=== PATIENT | female | born 1955 | race Caucasian/White ===

== ENCOUNTER 2019-01-09 14:12 | Outpatient (REF) | payer BC, SELFPAY ==
[2019-01-09 19:32] LABS: Cholesterol 232 mg/dL (50-200); HDL Cholesterol 53 mg/dL (40-60); LDL CHOLESTEROL 139 mg/dL (<100); Triglyceride 279 mg/dL (30-150)
[2019-01-09 19:37] LABS: HCT 39.7 % (36.0-46.0); HGB 12.5 g/dL (12.0-15.5)
== END 2019-01-09 14:32 ==
LOC: NCHCN 14:12
PROVIDERS: PCP Family Medicine; Visit Provider Family Medicine
DX: Z00.00 Encounter for general adult medical examination without abnormal findings (principal); Z13.220 Encounter for screening for lipoid disorders; Z13.0 Encounter for screening for diseases of the blood and blood-forming organs and certain disorders involving the immune mechanism
CPT/HCPCS: 80061; 83721; 85014; 85018

== ENCOUNTER 2019-01-27 00:43 | Outpatient (CLI) | payer BC, SELFPAY ==
--- NOTE | 2019-01-27 15:45 | DI.RAD_ITS ---
SYMPTOMS/DIAGNOSIS: PREVENTATIVE HEALTH CARE, Z00.00, SCREENING FOR OSTEOPOROSIS IN A POSTMENOPAUSAL WOMAN, Z78.0 DEXA SCAN: Routine examination. Comparison is 2013. The lateral spine film shows no compression deformities. Evaluation of the left hip shows a total T score of -1.3 and a Z score of 0; this is consistent with osteopenia and an increased fracture risk. This compares with a total T score of -1.4 from 2013. Evaluation of the lumbar spine shows a total T score of 0.7 and a Z score of 2.4, which is within normal limits. This compares with a total T score of 0.8 from 2013. No evidence of osteoporosis is seen. IMPRESSION: Osteopenia in the left hip.
--- NOTE | 2019-01-27 16:14 | DI.MAMMO_ITS ---
SYMPTOM/DIAGNOSIS: SCREENING, PREVENTATIVE CARE, Z00.00 MAMMOGRAMS: Mammograms were interpreted according to the usual protocol including computer analysis with CAD system, tomosynthesis and C view imaging. Comparison is made with prior examinations. Breast density, Category B. No suspicious masses or microcalcifications are seen. There is no definite evidence of malignancy. IMPRESSION: Negative mammogram. Routine screening is recommended. Category 1. MQSA ASSESSMENT OF FINDINGS: Negative. Category 1. Patient will receive a letter notifying them of these results. BI-RADS category B. There are scattered areas of fibroglandular density.
== END 2019-01-27 01:03 ==
PROVIDERS: PCP Family Medicine; Visit Provider Family Medicine
DX: Z00.00 Encounter for general adult medical examination without abnormal findings (principal); Z12.31 Encounter for screening mammogram for malignant neoplasm of breast; M85.88 Other specified disorders of bone density and structure, other site
CPT/HCPCS: 77063; 77067; 77080

== ENCOUNTER 2019-03-31 01:14 | Outpatient (CLI) | payer BC, SELFPAY ==
--- NOTE | 2019-03-31 10:00 | DI.US_ITS ---
SYMPTOM/DIAGNOSIS; CAD i 77.9 CAROTID ULTRASOUND: No significant plaque is visualized. The velocity measurements obtained are within the normal range. The vertebral arteries show antegrade flow. IMPRESSION: negative carotid ultrasound. No significant visible plaque or evidence of internal carotid artery stenosis.
== END 2019-03-31 01:34 ==
PROVIDERS: PCP Family Medicine; Visit Provider Family Medicine
DX: I77.9 Disorder of arteries and arterioles, unspecified (principal)
CPT/HCPCS: 93880

== ENCOUNTER 2019-06-18 13:22 | Outpatient (REF) | payer MEDICARE, BC, SELFPAY ==
[2019-06-18 21:22] LABS: Anion Gap 11.1 mmol/L (3-11); BUN 18 mg/dL (7-18); CO2 25.9 mmol/L (21.0-32.0); Calcium 8.7 mg/dL (8.5-10.1); Chloride 105 mmol/L (98-107); Ferritin 50 ng/mL (8-388); Glucose 97 mg/dL (70-100); Magnesium 1.8 mg/dL (1.8-2.4); Potassium 4.5 mmol/L (3.5-5.1); Sodium 142 mmol/L (136-145); TSH (W/Ref FT4) 0.83 uIU/mL (0.36-3.74)
== END 2019-06-18 13:42 ==
LOC: NCHCN 13:22
PROVIDERS: PCP Family Medicine; Visit Provider Family Medicine
DX: R25.2 Cramp and spasm (principal)
CPT/HCPCS: 80048; 82728; 83735; 84443

== ENCOUNTER 2019-10-01 10:42 | Outpatient (REF) | payer MEDICARE, BC, SELFPAY ==
--- NOTE | 2019-10-01 10:20 | PAPFT_PTH ---
PATIENT: Molly Cronin LOC: [facility] U#:[id number] AGE/SX: 64/F ROOM: RE10/01/[address]: Ford Bray MD : [id number] BED: DIS: 10/01/2019 SPEC #: [id number] RECD: 10/01/19 13:04 STATUS: RUDY RECasi #: [id number] DARRION: 10/01/19 10:[address]: Ford Bray DEPT: [facility] Cytology RECD BY: Mendy Wilson ENTERED: 10/01/19 13:04 SP TYPE: PAPFT OTHR DR: Georgia Correa V Tissues: 1 - CX/ENDOCX FOR PAP SMEARS Procedures: PAP THIN PREP/UVM Screening HPV DNA PROBE Comments: [id number]
== END 2019-10-01 11:02 ==
LOC: LBN 10:42
PROVIDERS: PCP Family Medicine; Visit Provider Obstetrics & Gynecology
DX: Z12.4 Encounter for screening for malignant neoplasm of cervix (principal); Z11.51 Encounter for screening for human papillomavirus (HPV)
CPT/HCPCS: 88142; 87624

== ENCOUNTER 2020-04-28 01:46 | Outpatient (CLI) | payer MEDICARE, BC, SELFPAY ==
--- NOTE | 2020-04-28 | DI.MRI_ITS ---
EXAM: MR LUMBAR SPINE WO/W CLINICAL HISTORY: PREOP PLANNING,PREVIOUS L3-5 DECOMPRESSION. TECHNIQUE: Multiplanar multisequence MRI was performed. Additional pre and post gadolinium fat-supp ressed T1 axial and sagittal sequences were performed. 15 milliliters of Dotarem were administered I V. COMPARISON: CR RT HIP COMPLETE AP PELVIS from 12/27/2017 CT ABD PELVIS WO CONTRAST from 02/11/2018 FINDINGS: The conus medullaris appears normal and terminates at the T12-L1 level. At T12-L1, there are posterior disc osteophytes which mildly efface the CSF space. There is no signi ficant neural foraminal narrowing or central canal stenosis. The L1-2 level is unremarkable. At L2-3, there is marked loss of disc height and broad-based disc osteophytes. There are facet degen erative changes and ligamentous hypertrophy which combine to produce a moderate degree of central can al stenosis as well as left neural foraminal narrowing. L3-4, there is mild loss of height and small disc osteophytes. There are facet degenerative changes and ligamentous hypertrophy mildly narrowing the transverse dimension of the canal. There is moderat e bilateral neural foraminal narrowing. There has been a laminectomy at L4. There is L4-5 spondylolisthesis which appears unchanged from the previous CT. There is loss of disc height and disc bulging. There is a degenerative cyst in the in ferior endplate of L4. There are prominent facet degenerative changes causing severe bilateral neura l foraminal narrowing. There is also moderate to severe central canal stenosis, mainly of the transv erse dimension. The L5-S1 disc shows mild bulging. There mild facet degenerative changes and no significant neural f oraminal narrowing. A nerve root sheath cyst is seen at the S2 level. The aorta is normal in diameter. The kidneys are normal as visualized. There is no abnormal enhance ment within the central canal. IMPRESSION: Severe degenerative disc changes and severe facet degenerative changes as well as postsurgical garcia es at L4-5 cause severe bilateral neural foraminal narrowing as well as moderate to severe central ca nal stenosis. Less severe degenerative changes are seen at other levels as mentioned above. DATA REPOSITORY:
[2020-04-28 11:01] LABS: CREATININE 0.71 mg/dL (0.55-1.02)
[2020-04-28] MEDS: Normal Saline Flush 10 ML SYR IVP (11:08)
[2020-04-28] MEDS: Gadoterate meglumine 20 ML VIAL 15 ML IVP (11:09)
== END 2020-04-28 02:06 ==
PROVIDERS: PCP Family Medicine; Visit Provider Orthopaedic Surgery
DX: M47.816 Spondylosis without myelopathy or radiculopathy, lumbar region (principal); M48.061 Spinal stenosis, lumbar region without neurogenic claudication; M25.78 Osteophyte, vertebrae
CPT/HCPCS: 72158; 82565

== ENCOUNTER 2020-05-23 00:45 | Outpatient (CLI) | payer MEDICARE, BC, SELFPAY ==
--- NOTE | 2020-05-23 11:50 | DI.MRI_ITS ---
EXAM: MR LOWER JOINT RT WO CLINICAL HISTORY: EVALUATE INTEGRITY OF ACHILLES TENDON RT HEEL,ARTHRALGIA,PAIN,M76.62. TECHNIQUE: Multiplanar multisequence MRI was performed. COMPARISON: No exams were available for comparison FINDINGS: MR examination of the ankle was performed according to the usual protocol. Patient reportedly has sy mptoms referable to the heel and Achilles tendon. There is minimally abnormal bony signal at the Achilles attachment on the calcaneus. There is a smal l Achilles attachment spur of the calcaneus. The distal Achilles tendon is thickened at about 15 mil limeters. There appears to be linear tearing at the Achilles insertion particularly the anterior por tion of the Annamaria insertional tendon with tearing extending over approximately 10 by 4 millimeter vert ically oriented region in tendon. Mildly abnormal fat signal seen adjacent to the distal Achilles. Small ankle joint effusion noted. Remainder of the tendons of the ankle including the medial, latera l, and anterior tendon groups, appear intact. Plantar fascia shows essentially normal signal and tiffanie ronaldo. There is mild marginal osteophyte formation at the tibiotalar, talofibular, and tibiofibular joints a s well as at the subtalar articulations. Cartilage of these articulations appear fairly well maintai pasquale. No significant ligamentous abnormality of the aforementioned joints. Alignment appears within normal limits. Visualized midfoot structures appear intact including the sinus tarsi and tarsal tunn el regions. Mildly increased fluid associated with the flexor hallucis longus tendon without intra t endinous signal abnormality. IMPRESSION: Marked Achilles thickening an intra tendinous signal abnormality consistent with tendinosis in the Pe ri insertional tendon with associated focal linear vertically oriented tear of the Annamaria insertional t endon. No other significant findings in the ankle region. DATA REPOSITORY:
== END 2020-05-23 01:05 ==
PROVIDERS: PCP Family Medicine; Visit Provider Podiatrist
DX: M76.61 Achilles tendinitis, right leg (principal); S86.011A Strain of right Achilles tendon, initial encounter
CPT/HCPCS: 73721

== ENCOUNTER 2020-05-26 21:46 | Outpatient (REF) | payer MEDICARE, BC, SELFPAY ==
[2020-05-26 19:43] LABS: BUN 22 mg/dL (7-18); CREATININE 0.79 mg/dL (0.55-1.02)
[2020-05-27 17:57] LABS: HCT 40.9 % (36.0-46.0); HGB 12.6 g/dL (11.2-15.7); MCH 28.6 pg (27.0-33.0); MCHC 30.8 % (32.0-36.0); MPV 10.1 fL (8.0-11.0); Platelet Count 257 10^3/uL (130-400); RDW 13.8 % (11.7-14.6); RDW-SD 47.4 fL; WBC 6.35 10^3/uL (4.4-10.8)
== END 2020-05-26 22:06 ==
LOC: NCHCN 21:46
PROVIDERS: PCP Family Medicine; Visit Provider Nurse Practitioner Family
DX: M54.5 Low back pain (principal); Z01.818 Encounter for other preprocedural examination; Z11.8 Encounter for screening for other infectious and parasitic diseases
CPT/HCPCS: 84520; 85027; 87081; 82565

== ENCOUNTER 2020-06-10 03:50 | Outpatient (CLI) | payer MEDICARE, BC, SELFPAY ==
[2020-06-11 20:28] LABS: COVID-19 RT-PCR Result NEGATIVE (Negative)
== END 2020-06-10 04:10 ==
PROVIDERS: PCP Family Medicine; Visit Provider Orthopaedic Surgery
DX: Z11.59 Encounter for screening for other viral diseases (principal); Z01.818 Encounter for other preprocedural examination
CPT/HCPCS: U0003

== ENCOUNTER 2020-07-12 12:53 | Outpatient (REF) | payer MEDICARE, BC, SELFPAY | END 2020-07-12 13:13 | LOC: NCHCN 12:53 | PROVIDERS: PCP Family Medicine; Visit Provider Family Medicine | DX: Z48.89 Encounter for other specified surgical aftercare (principal); T81.49XA Infection following a procedure, other surgical site, initial encounter | CPT/HCPCS: 87077; 87070; 87186; 87205 ==

== ENCOUNTER 2020-08-09 14:59 | Outpatient (REF) | payer MEDICARE, BC, SELFPAY ==
[2020-08-14 11:22] LABS: Codeine Negative ng/mL (Cutoff: 25); Dihydrocodeine Negative ng/mL (Cutoff: 25); Hydrocodone Negative ng/mL (Cutoff: 25); Hydromorphone 33 ng/mL (Cutoff: 25); Morphine Negative ng/mL (Cutoff: 25); Naloxone Negative ng/mL (Cutoff: 25); Norhydrocodone Negative ng/mL (Cutoff: 25); Noroxycodone 13287 ng/mL (Cutoff: 25); Noroxymorphone 680 ng/mL (Cutoff: 25); Opiates Interpretation Positive.
== END 2020-08-09 15:19 ==
LOC: NCHCN 14:59
PROVIDERS: PCP Family Medicine; Visit Provider Family Medicine
DX: R82.5 Elevated urine levels of drugs, medicaments and biological substances (principal)
CPT/HCPCS: 80361

== ENCOUNTER 2021-01-24 11:12 | Outpatient (REF) | payer MEDICARE, BC, SELFPAY ==
[2021-01-24 16:16] LABS: HCT 39.3 % (36.0-46.0); HGB 12.1 g/dL (11.2-15.7); MCHC 30.8 % (32.0-36.0); MCV 84.3 fL (80-95); MPV 9.7 fL (8.0-11.0); Platelet Count 276 10^3/uL (130-400); RBC 4.66 10^6/uL (3.93-5.22); RDW 16.9 % (11.7-14.6); RDW-SD 52.1 fL; WBC 5.35 10^3/uL (4.4-10.8)
[2021-01-24 16:19] LABS: ESR 19 mm//hr (0-30)
[2021-01-24 17:18] LABS: ALT 34 U/L (14-59); AST 18 U/L (15-37); Albumin 3.6 g/dL (3.4-5.0); Alkaline Phosphatase 116 U/L (46-116); Anion Gap 7.2 mmol/L (3-11); BUN 22 mg/dL (7-18); Bilirubin, Total 0.3 mg/dL (0.2-1.0); CO2 28.8 mmol/L (21.0-32.0); CREATININE 0.8 mg/dL (0.55-1.02); Calcium 8.4 mg/dL (8.5-10.1); Calculated LDL 99 mg/dL (<100); Chloride 105 mmol/L (98-107); Cholesterol 216 mg/dL (<200); Glucose 114 mg/dL (74-106); HDL Cholesterol 41 mg/dL (40-60); Magnesium 1.8 mg/dL (1.8-2.4); Potassium 4.8 mmol/L (3.5-5.1); Sodium 141 mmol/L (136-145); Total Protein 6.9 g/dL (6.4-8.2); Triglyceride 380 mg/dL (<150)
[2021-01-24 17:29] LABS: C-Reactive Protein 0.27 mg/dL (0.0-0.3)
[2021-01-30 15:41] LABS: IgA 233 mg/dL (85-499); Interpretation (See Note); Tissue Transglutaminase IgA <1.2 U/mL (<4.0)
== END 2021-01-24 11:13 | disposition home or self-care (01) ==
LOC: NCHCN 11:12
PROVIDERS: PCP Family Medicine; Visit Provider Family Medicine
DX: R19.7 Diarrhea, unspecified (principal); R10.9 Unspecified abdominal pain; F41.9 Anxiety disorder, unspecified; R79.89 Other specified abnormal findings of blood chemistry
CPT/HCPCS: 80053; 80061; 82784; 83516; 85027; 85652; 83735; 84443; 86140

== ENCOUNTER 2021-03-01 15:44 | Outpatient (REF) | payer MEDICARE, BC, SELFPAY | END 2021-03-01 15:45 | disposition home or self-care (01) | LOC: NCHCN 15:44 | PROVIDERS: PCP Family Medicine; Visit Provider Physician Assistant Medical | DX: R35.0 Frequency of micturition (principal) | CPT/HCPCS: 87077; 87086; 87186 ==

== ENCOUNTER 2021-04-26 13:41 | Outpatient (REF) | payer MEDICARE, BC, SELFPAY | END 2021-04-26 13:42 | disposition home or self-care (01) | LOC: NCHCN 13:41 | PROVIDERS: PCP Family Medicine; Visit Provider Nurse Practitioner Family | DX: N39.0 Urinary tract infection, site not specified (principal) | CPT/HCPCS: 87077; 87086; 87186 ==

== ENCOUNTER 2021-07-11 12:26 | Outpatient (REF) | payer MEDICARE, BC, SELFPAY ==
[2021-07-11 19:24] LABS: HCT 38.9 % (36.0-46.0); MCH 27.5 pg (27.0-33.0); MCHC 30.8 % (32.0-36.0); MPV 9.8 fL (8.0-11.0); Platelet Count 250 10^3/uL (130-400); RBC 4.37 10^6/uL (3.93-5.22); RDW 14.8 % (11.7-14.6); RDW-SD 48.3 fL; WBC 5.83 10^3/uL (4.4-10.8)
[2021-07-11 19:25] LABS: ESR 17 mm/hr (0-30)
[2021-07-11 19:58] LABS: ALT 30 U/L (14-59); AST 14 U/L (15-37); Albumin 3.3 g/dL (3.4-5.0); Alkaline Phosphatase 113 U/L (46-116); Anion Gap 8.5 mmol/L (3-11); BUN 16 mg/dL (7-18); Bilirubin, Total 0.2 mg/dL (0.2-1.0); CO2 27.5 mmol/L (21.0-32.0); CREATININE 0.8 mg/dL (0.55-1.02); Calcium 8.6 mg/dL (8.5-10.1); Chloride 107 mmol/L (98-107); Glucose 126 mg/dL (74-106); Potassium 4.2 mmol/L (3.5-5.1); Sodium 143 mmol/L (136-145); Total Protein 6.4 g/dL (6.4-8.2)
[2021-07-14 22:43] LABS: Codeine Negative ng/mL (Cutoff: 25); Dihydrocodeine Negative ng/mL (Cutoff: 25); Hydrocodone Negative ng/mL (Cutoff: 25); Hydromorphone Negative ng/mL (Cutoff: 25); Morphine Negative ng/mL (Cutoff: 25); Naloxone Negative ng/mL (Cutoff: 25); Norhydrocodone Negative ng/mL (Cutoff: 25); Noroxycodone 5712 ng/mL (Cutoff: 25); Noroxymorphone 259 ng/mL (Cutoff: 25); Opiates Interpretation Positive.
[2021-07-18 10:18] LABS: IgA 206 mg/dL (85-499); Interpretation (See Note); Tissue Transglutaminase IgA <1.2 U/mL (<4.0)
[2021-07-19 19:45] LABS: 2-OH-Ethyl-Flurazepam Negative ng/mL (Cutoff: 10); 7-NH-Clonazepam Negative ng/mL (Cutoff: 10); 7-NH-Flunitrazepam Negative ng/mL (Cutoff: 10); Alpha OH-Alprazolam Negative ng/mL (Cutoff: 10); Alpha-OH Midazolam Negative ng/mL (Cutoff: 10); Alpha-OH-Triazolam Negative ng/mL (Cutoff: 10); Alprazolam Negative ng/mL (Cutoff: 10); Benzodiazepines Interpretation Positive.; Chlordiazepoxide Negative ng/mL (Cutoff: 10); Clobazam Negative ng/mL (Cutoff: 10); Clonazepam Negative ng/mL (Cutoff: 10); Diazepam Negative ng/mL (Cutoff: 10); Flurazepam Negative ng/mL (Cutoff: 10); Lorazepam Negative ng/mL (Cutoff: 10); Midazolam Negative ng/mL (Cutoff: 10); N-Desmethylclobazam Negative ng/mL (Cutoff: 10); Prazepam Negative ng/mL (Cutoff: 10); Temazepam 133 ng/mL (Cutoff: 10); Triazolam Negative ng/mL (Cutoff: 10); Zolpidem Carboxylic acid Negative ng/mL (Cutoff: 10)
== END 2021-07-11 12:27 | disposition home or self-care (01) ==
LOC: NCHCN 12:26
PROVIDERS: PCP Family Medicine; Visit Provider Family Medicine
DX: Z51.81 Encounter for therapeutic drug level monitoring (principal); R19.7 Diarrhea, unspecified; R10.84 Generalized abdominal pain
CPT/HCPCS: 80053; 80361; 80362; 80365; 82784; 83516; 85027; 85652; 80346; 86140

== ENCOUNTER 2021-07-18 15:08 | Outpatient (REF) | payer MEDICARE, BC, SELFPAY | END 2021-07-18 15:09 | disposition home or self-care (01) | LOC: LBN 15:08 | PROVIDERS: PCP Family Medicine; Visit Provider Nurse Practitioner Family | DX: R35.0 Frequency of micturition (principal) | CPT/HCPCS: 87077; 87086; 87186 ==

== ENCOUNTER 2021-08-07 20:19 | Outpatient (REF) | payer MEDICARE, BC, SELFPAY ==
[2021-08-14 13:04] LABS: Misc Referral (MAYO) See Comments
== END 2021-08-07 20:20 | disposition home or self-care (01) ==
LOC: NCHCN 20:19
PROVIDERS: PCP Family Medicine; Visit Provider Family Medicine
DX: R19.7 Diarrhea, unspecified (principal); R23.2 Flushing
CPT/HCPCS: 84260

== ENCOUNTER 2021-10-10 18:12 | Outpatient (REF) | payer MEDICARE, BC, SELFPAY ==
[2021-10-11 00:30] LABS: COVID-19 RT-PCR UVMMC Result Negative (Negative)
== END 2021-10-10 18:13 | disposition home or self-care (01) ==
LOC: NCHCN 18:12
PROVIDERS: PCP Family Medicine; Visit Provider Family Medicine
DX: Z20.822 Contact with and (suspected) exposure to COVID-19 (principal); J06.9 Acute upper respiratory infection, unspecified
CPT/HCPCS: U0003; U0005

== ENCOUNTER 2022-01-09 14:50 | Outpatient (REF) | payer MEDICARE, BC, SELFPAY ==
[2022-01-09 18:41] LABS: HCT 43.9 % (36.0-46.0); HGB 13.7 g/dL (11.2-15.7); MCHC 31.2 % (32.0-36.0); MCV 89.8 fL (80-95); MPV 9.1 fL (8.0-11.0); Platelet Count 316 10^3/uL (130-400); RBC 4.89 10^6/uL (3.93-5.22); RDW 14.3 % (11.7-14.6); RDW-SD 47.1 fL; WBC 6.83 10^3/uL (4.4-10.8)
[2022-01-09 19:05] LABS: ALT 51 U/L (14-59); AST 18 U/L (15-37); Albumin 3.8 g/dL (3.4-5.0); Alkaline Phosphatase 100 U/L (46-116); Anion Gap 8.7 mmol/L (3-11); BUN 23 mg/dL (7-18); Bilirubin, Total 0.3 mg/dL (0.2-1.0); C-Reactive Protein 0.29 mg/dL (0.0-0.3); CO2 27.3 mmol/L (21.0-32.0); CREATININE 0.8 mg/dL (0.55-1.02); Calcium 9.1 mg/dL (8.5-10.1); Chloride 104 mmol/L (98-107); Glucose 91 mg/dL (74-106); Potassium 5.2 mmol/L (3.5-5.1); Sodium 140 mmol/L (136-145); TSH (W/Ref FT4) 1.31 uIU/mL (0.36-3.74); Total Protein 7.1 g/dL (6.4-8.2)
[2022-01-09 19:15] LABS: ESR 12 mm/hr (0-30)
== END 2022-01-09 14:51 | disposition home or self-care (01) ==
LOC: NCHCN 14:50
PROVIDERS: PCP Family Medicine; Visit Provider Family Medicine
DX: R19.7 Diarrhea, unspecified (principal); R10.9 Unspecified abdominal pain; M54.59 Other low back pain
CPT/HCPCS: 80053; 85027; 85652; 84443; 86140

== ENCOUNTER 2022-01-25 01:38 | Outpatient (CLI) | payer MEDICARE, BC, SELFPAY ==
--- NOTE | 2022-01-25 08:45 | DI.CT_ITS ---
Exam(s) CT ABDOMEN PELVIS W EXAM: CT ABDOMEN PELVIS W INDICATION: ABD PAIN,R10.9,FREQUENT LOOSE, STOLS,R19.7. COMPARISON: CT ABD PELVIS WO CONTRAST from 02/11/2018 TECHNIQUE: FINDINGS: CT examination of the abdomen and pelvis was performed with a bolus infusion of 100 cc of Omnipaque 3 50. Images obtained through the lung bases are unremarkable. There is dilatation and wall thickening duodenum and proximal jejunum, findings are nonspecific but t he possibility of enteritis is raised, giardiasis not excluded, please correlate clinically. Note is also made of apparent wall thickening of the distal descending and sigmoid colon, nonspecific but the findings may represent colitis. The liver is unremarkable in appearance except for tiny low-attenuation lesion of the right hepatic l obe consistent with cyst.. Gallbladder and bile ducts are CT normal. Pancreas appears normal. Spleen is unremarkable in appearance. Adrenals appear normal. The kidneys are unremarkable with no evidence of hydronephrosis, nephrolithiasis, or renal mass.. Ur inary bladder unremarkable. Abdominal aorta is of normal diameter and no major vascular abnormality is seen. No abdominal wall hernia. No abdominal or pelvic adenopathy. TREATMENT COUNSELOR structures appear intact. Appendix has been surgically removed with suture line noted at the base of the cecum. IMPRESSION: Findings raising the possibility of enteritis and colitis, please see above discussion. Additional e valuation with colonoscopy and upper endoscopy may be considered if clinically appropriate.. RADIATION DOSE DELIVERED: 878.92mGy.cm Total DLP 878.92mGy.cm Total DLP !Error CTDIvol RADIATION OPTIMIZATION: All CT scans at this facility use at least one of these dose optimization te chniques: automated exposure control; mA and/or kV adjustment per patient size (includes targeted exa ms where dose is matched to clinical indication); or iterative reconstruction.
[2022-01-25] MEDS: Omnipaque 350 MG/ML 100 ML BTL IJ (10:24)
[2022-01-25] MEDS: Omnipaque 350 MG/ML 50 ML BTL IJ (10:27)
[2022-01-25] MEDS: Breeza Beverage 473 ML BTL PO (10:27)
== END 2022-01-25 01:58 ==
PROVIDERS: PCP Family Medicine; Visit Provider Family Medicine
DX: R10.9 Unspecified abdominal pain (principal); R19.7 Diarrhea, unspecified; K31.89 Other diseases of stomach and duodenum; K63.89 Other specified diseases of intestine; K76.89 Other specified diseases of liver
CPT/HCPCS: 74177; J3490; Q9967

== ENCOUNTER 2022-01-25 16:37 | Outpatient (REF) | payer MEDICARE, BC, SELFPAY ==
[2022-01-29 13:51] LABS: Helicobacter pylori Ag, Feces Negative (Negative)
== END 2022-01-25 16:38 | disposition home or self-care (01) ==
LOC: NCHCN 16:37
PROVIDERS: PCP Family Medicine; Visit Provider Family Medicine
DX: R19.7 Diarrhea, unspecified (principal); R10.9 Unspecified abdominal pain
CPT/HCPCS: 87338

== ENCOUNTER → 2022-08-28 01:56 | Outpatient (CLI) | payer MEDICARE, BC, SELFPAY ==
--- NOTE | 2022-08-28 | DI.DEXA_ITS ---
Exam(s) XR DEXA BONE DENSITY W/WO TAMI EXAM: XR DEXA BONE DENSITY W/WO TAMI CLINICAL HISTORY: OSTEOPENIA M85.80 POSTMENOPAUSAL Z78.0 TECHNIQUE: COMPARISON: Comparison examination is 01/27/2019. FINDINGS: Lateral Spine Image: Unremarkable. No compression deformities identified. Postsurgical changes are s een from L3 through L5. Left hip: Total T-Score: -1.3. This is unchanged compared to the prior examination. Total Z-Score: 0.2 T- and Z-scores: Findings are consistent with osteopenia. Left forearm: Total T-Score: -0.3. Osteopenia is noted in the left forearm with a T-score of -1.1. Total Z-Score: 1.6 T- and Z-scores: Within normal limits. IMPRESSION: No evidence of osteoporosis.
== END ==
PROVIDERS: PCP Family Medicine; Visit Provider Family Medicine
DX: Z78.0 Asymptomatic menopausal state (principal); Z13.820 Encounter for screening for osteoporosis; M85.88 Other specified disorders of bone density and structure, other site
CPT/HCPCS: 77080

== ENCOUNTER 2022-10-10 01:35 | Outpatient (CLI) | payer MEDICARE, SELFPAY ==
--- NOTE | 2022-10-10 | DI.MAMMO_ITS ---
Exam(s) MAMMO SCREENING EXAM: MAMMO SCREENING CLINICAL HISTORY: SCREENING FOR BREAST CANCER Z12.31 [facility] Z00.00 TECHNIQUE: Mammograms were interpreted according to the usual protocol including computer analysis w ith CAD system, tomosynthesis and C-view imaging. COMPARISON: 2012 through 2018 FINDINGS: The breasts are composed of scattered fibroglandular densities, Breast Density category B. No suspicious masses or suspicious microcalcifications are seen. No skin thickening or abnormal axillary lymph nodes are seen. There has been no significant change from prior exams. IMPRESSION: BI-RADS Category 1, Negative mammogram Yearly screening mammography is recommended. Breast Density - Category B, scattered fibroglandular densities. A negative radiographic report should not delay biopsy if a dominant or clinically suspicious mass is present. Up to ten percent of cancers are not identified on mammography. A negative report may reinforce clinical impression. Adenosis and dense breasts may obscure an underlying neoplasm. False positive reports average 6 to 10%. Patient will receive a letter notifying them of these results.
== END 2022-10-10 01:55 ==
PROVIDERS: PCP Family Medicine; Visit Provider Family Medicine
DX: Z12.31 Encounter for screening mammogram for malignant neoplasm of breast (principal)
CPT/HCPCS: 77063; 77067

== ENCOUNTER 2023-02-05 17:48 | Outpatient (REF) | payer MEDICARE, BC, SELFPAY ==
[2023-02-05 16:06] LABS: ALT 36 U/L (14-59); AST 23 U/L (15-37); Albumin 3.5 g/dL (3.4-5.0); Alkaline Phosphatase 112 U/L (46-116); Anion Gap 7.4 mmol/L (3-11); BUN 19 mg/dL (7-18); Bilirubin, Total 0.2 mg/dL (0.2-1.0); CO2 26.6 mmol/L (21.0-32.0); CREATININE 0.8 mg/dL (0.55-1.02); Calcium 8.3 mg/dL (8.5-10.1); Calculated LDL 105 mg/dL (<100); Chloride 108 mmol/L (98-107); Cholesterol 203 mg/dL (<200); Estimated GFR 79.71 (mL/min/1.73m2); Glucose 101 mg/dL (74-106); HDL Cholesterol 56 mg/dL (40-60); Potassium 4.2 mmol/L (3.5-5.1); Sodium 142 mmol/L (136-145); Triglyceride 213 mg/dL (<150)
== END 2023-02-05 17:49 | disposition home or self-care (01) ==
LOC: NCHCN 17:48
PROVIDERS: PCP Family Medicine; Visit Provider Family Medicine
DX: Z00.00 Encounter for general adult medical examination without abnormal findings (principal); M19.90 Unspecified osteoarthritis, unspecified site
CPT/HCPCS: 80053; 80061; 82306

== ENCOUNTER 2023-07-24 21:07 | Emergency (ER) | payer MEDICARE, BC, SELFPAY ==
--- NOTE | 2023-07-24 20:45 | RT.EKG_ITS ---
APPROVED REPORT Exam: Resting ECG Reason for Exam: chest pain Patient Location: E HR:88 bpm ECG Measurements Heart Rate 88 AXIS FL 162 P 28 QRSd 96 QRS 2 QT 345 T 45 QTc 418 Conclusion Sinus rhythm...V-rate 60- [address] segment or T wave abnormalities to suggest occlusive RI
[2023-07-24 20:53] VITALS: BP 140/70; PULSE 90; RESP 16; O2SAT 98
[2023-07-24 20:56] VITALS: RESP 16
[2023-07-24 21:17] LABS: Abs Immature Grans 0.02 10^3/uL (0.0-0.06); Absolute Basophil Count 0.05 10^3/uL (0.0-0.2); Absolute Eosinophil Count 0.14 10^3/uL (0.0-0.7); Absolute Lymphocyte Count 2.04 10^3/uL (1.2-3.4); Absolute Monocyte Count 0.58 10^3/uL (0.1-0.8); Absolute Neutrophil Count 4.58 10^3/uL (1.2-6.7); Basophils % 0.7; Eosinophils % 1.9; HGB 13.3 g/dL (11.2-15.7); Immature Grans % 0.3; Lymphocytes % 27.5; MCH 28.7 pg (27.0-33.0); MCHC 32.4 % (32.0-36.0); MCV 89 fL (80-95); MPV 8.6 fL (8.0-11.0); Monocytes % 7.8; Neutrophils % 61.8; Platelet Count 240 10^3/uL (130-400); RBC 4.63 10^6/uL (3.93-5.22); RDW 13.4 % (11.7-14.6); RDW-SD 43.8 fL; WBC 7.41 10^3/uL (4.4-10.8)
[2023-07-24 21:24] LABS: Prothrombin Time 10.2 sec (9.1-11.1)
[2023-07-24 21:31] LABS: ALT 33 U/L (14-59); AST 20 U/L (15-37); Albumin 3.6 g/dL (3.4-5.0); Alkaline Phosphatase 98 U/L (46-116); Anion Gap 6.4 mmol/L (3-11); BUN 22 mg/dL (7-18); Bilirubin, Total 0.4 mg/dL (0.2-1.0); CO2 27.6 mmol/L (21.0-32.0); CREATININE 0.8 mg/dL (0.55-1.02); Calcium 8.8 mg/dL (8.5-10.1); Chloride 106 mmol/L (98-107); Estimated GFR 79.71 (mL/min/1.73m2); Glucose 112 mg/dL (74-106); Potassium 4.5 mmol/L (3.5-5.1); Sodium 140 mmol/L (136-145); Troponin I < 50 ng/L (<or=60)
--- NOTE | 2023-07-24 21:57 | DI.CT_ITS ---
Exam(s) CT CHEST/ABD/PEL WO EXAM: CT CHEST/ABD/PEL WO CLINICAL HISTORY: Mid epigastric abdominal pain, Nausea. TECHNIQUE: Imaging Protocol: Axial computed tomography images with coronal and sagittal reformatted images were created and reviewed CONTRAST MATERIAL: Intravenous: Omnipaque 350 Contrast volume:100 ml Oral: no COMPARISON: CT CT ABDOMEN PELVIS W from 01/25/2022 FINDINGS: CHEST: Tracheobronchial tree: Patent where visualized. Pulmonary parenchyma: No consolidation or dominant measurable mass. Minimal posterior basilar atelec tasis. Pleura: No effusion or pneumothorax. Lymph nodes: Within normal limits. Aorta: Thoracic portion non-dilated. Heart: Normal size. Mild coronary artery calcifications. No pericardial effusion. Bones: Unremarkable for age. No lytic or blastic lesions.No compression fractures. ABDOMEN and PELVIS: Liver: Normal density. No measurable mass. Gallbladder and biliary tract: No evidence of stones or wall thickening. No biliary dilatation. Pancreas: Normal density, no abnormal calcifications or inflammatory process. Spleen: Normal. Kidneys: Normal size, contour and axis. No radiodense stones or obstructive uropathy. No suspicious m asses seen. Adrenal glands: No masses seen. Aorta: Abdominal portion non-dilated. Mild atherosclerotic changes. Lymph nodes: Within normal limits. Soft tissues: Unremarkable. Bladder: Unremarkable. Bowel: Stomach nearly empty. Sigmoid diverticulosis. No evidence of diverticulitis. Moderate quant ity of stool. No obstruction or bowel wall thickening. Appendix not definitely visualized. Peritoneal cavity: No ascites. No focal collection or mesenteric inflammatory response. Bones: postsurgical changes lower lumbar spine with hardware. Degenerative changes. Reproductive organs: Unremarkable. IMPRESSION: No acute abnormality in the chest, abdomen or pelvis.. RADIATION DOSE DELIVERED: Total DLP DATA REPOSITORY: All CT scans at this facility are submitted to the National Radiology Data Registry (NRDR) Dose Index Registry (DIR) with the [employer] (ACR). RADIATION OPTIMIZATION: All CT scans at this facility use at least one of these dose optimization te chniques: automated exposure control; mA and/or kV adjustment per patient size (includes targeted exa ms where dose is matched to clinical indication); or iterative reconstruction.
--- NOTE | 2023-07-24 22:00 | ED.GENADUL_ITS ---
Discharge Plan Discharge Details Chief Complaint: Chest Pain Clinical Impression: Abdominal pain Primary Care Provider: Georgia Correa V ED Provider: Graciela Nice Home Meds and New Rx's Prescriptions: No Action duloxetine [Cymbalta] 20 mg capsule,delayed release(DR/EC) 20 mg PO BID Hold Instructions: Prescription Finished escitalopram oxalate [Lexapro] 10 MG tablet 10 mg PO DAILY famotidine 20 mg tablet 20 mg PO DAILY celecoxib [Celebrex] 200 mg capsule 200 mg PO BID Rx Instructions: with a meal trazodone 150 MG tablet 150 mg PO DAILY omeprazole 20 MG capsule,delayed release(DR/EC) 20 mg PO DAILY diclofenac sodium 75 MG tablet,delayed release (DR/EC) 75 mg PO BID Hold Instructions: Prescription Finished cyclobenzaprine 10 MG tablet 10 mg PO TID PRN PRN Patient Comments: Patient states she has not taken this in a few weeks. Patient states she takes this as needed. rizatriptan [Maxalt] 10 MG tablet 10 mg PO DIRECTED Patient Comments: last week acetaminophen [Tylenol Arthritis Pain] 650 MG tablet extended release 650 mg PO DAILY Hold Instructions: Adverse Reaction oxycodone 10 MG tablet 10 mg PO BID PRN Hold Instructions: Prescription Finished Medical Decision Making 67-year-old female with a past medical history of diverticulosis, peptic ulcer disease, GERD, colitis, IBS and CAD presents with midepigastric abdominal pain which radiates down to her navel which began 2 days ago. Patient reports this is different than her previous abdominal pain. Associate with nausea no vomiting reports diarrhea which is chronic for her. She denies any hematic emesis or hematochezia. She does not take aspirin on a daily basis she reports that she cannot take aspirin or NSAIDs due to to her GI disease. Cardiac work-up ordered including serial troponins, CT chest abdomen pelvis with IV contrast ordered. Differential Dx includes but not limited to SOB, cholecystitis, AAA, GERD, diverticulitis 500 cc normal saline bolus ordered and Fentanyl IV Initial troponin within normal limits. No leukocytosis no left shift, PT/INR within normal limits CMP shows sodium 140 potassium 4.5 BUN 22 creatinine 0.8 glucose is 112 liver enzymes within normal limits initial troponin less than 50. 2306: CT changed to without contrast due to IV contrast dye. Care is to be handed off to oncoming provider Dr. Jose Panda pending repeat troponin at midnight and CT results. Medical Records Medical records reviewed: Yes I reviewed the patient's medical records. Lab Data Lab results reviewed: Yes I reviewed the patient's lab results. Labs: Laboratory Tests Range/Units 07/24/23 20:57 WBC (4.4-10.8) 10^3/uL 7.41 RBC (3.93-5.22) 10^6/uL 4.63 Hgb (11.2-15.7) g/dL 13.3 Hct (36.0-46.0) % 41.0 MCV (80-95) fL 89 MCH (27.0-33.0) pg 28.7 MCHC (32.0-36.0) % 32.4 RDW (11.7-14.6) % 13.4 Plt Count (130-400) 10^3/uL 240 MPV (8.0-11.0) fL 8.6 Immature Gran % 0.3 Neutrophils % 61.8 Lymphocytes % 27.5 Monocytes % 7.8 Eosinophils % 1.9 Basophils % 0.7 Nucleated RBC % (0.0-0.3) % 0.0 Absolute Neutrophils (1.2-6.7) 10^3/uL 4.58 Absolute Lymphocytes (1.2-3.4) 10^3/uL 2.04 Absolute Monocytes (0.1-0.8) 10^3/uL 0.58 Absolute Eosinophils (0.0-0.7) 10^3/uL 0.14 Absolute Basophils (0.0-0.2) 10^3/uL 0.05 PT (9.1-11.1) sec 10.2 INR (0.9-1.1) 1.0 Sodium (136-145) mmol/L 140 Potassium (3.5-5.1) mmol/L 4.5 Chloride (98-107) mmol/L 106 Carbon Dioxide (21.0-32.0) mmol/L 27.6 Anion Gap (3-11) mmol/L 6.4 BUN (7-18) mg/dL 22 H Creatinine (0.55-1.02) mg/dL 0.8 Est GFR (CKD-EPI 2020) (mL/min/1.73m2) 79.71 Glucose (74-106) mg/dL 112 H Calcium (8.5-10.1) mg/dL 8.8 Magnesium (1.8-2.4) mg/dL 2.0 Total Bilirubin (0.2-1.0) mg/dL 0.4 AST (15-37) U/L 20 ALT (14-59) U/L 33 Alkaline Phosphatase (46-116) U/L 98 Troponin I (<or=60) ng/L < 50 Total Protein (6.4-8.2) g/dL 7.0 Albumin (3.4-5.0) g/dL 3.6 HPI General Mode of arrival: ambulatory . Date/Time Provider Initiated Documentation: 07/24/23 21:57 . Limitations to Documentation: no limitations . Information obtained by: patient, EMS, RN notes reviewed and old records reviewed . HPI Narrative: 67-year-old female with a past medical history of diverticulosis, peptic ulcer disease, GERD, colitis, IBS and CAD presents with midepigastric abdominal pain which radiates down to her navel which began 2 days ago. Patient reports this is different than her previous abdominal pain. Associate with nausea no vomiting reports diarrhea which is chronic for her. She denies any hematic emesis or hematochezia. She does not take aspirin on a daily basis she reports that she cannot take aspirin or NSAIDs due to to her GI disease. Related Data Home Medications Medication Instructions Recorded Confirmed omeprazole 20 mg capsule,delayed 20 mg PO DAILY 12/30/13 07/24/23 release trazodone 150 mg tablet 150 mg PO DAILY 12/30/13 07/24/23 escitalopram oxalate 10 mg tablet 10 mg PO DAILY 03/11/17 07/24/23 (Lexapro) acetaminophen 650 mg 650 mg PO DAILY 06/18/17 07/24/23 tablet,extended release (Tylenol Arthritis Pain) cyclobenzaprine 10 mg tablet 10 mg PO TID PRN PRN 06/18/17 07/24/23 oxycodone 10 mg tablet 10 mg PO BID PRN 06/18/17 07/24/23 rizatriptan 10 mg tablet (Maxalt) 10 mg PO DIRECTED 06/18/17 07/24/23 diclofenac sodium 75 mg 75 mg PO BID 10/07/17 07/24/23 tablet,delayed release duloxetine 20 mg capsule,delayed 20 mg PO BID 10/01/19 07/24/23 release (Cymbalta) celecoxib 200 mg capsule (Celebrex) 200 mg PO BID 04/11/23 07/24/23 famotidine 20 mg tablet 20 mg PO DAILY 04/11/23 07/24/23 Allergies Allergy/AdvReac Type Severity Reaction Status Date / Time gabapentin AdvReac Mild confused Verified 04/19/23 11:47 iv dye Allergy Severe Hives Uncoded 04/19/23 11:47 General Stated Complaint: Chest Pain ANNIE: 3 Review of Systems All systems reviewed & are unremarkable except as noted in HPI and below Cardiovascular Cardiovascular: Reports as per HPI (midepigastric pain radiates into periumbilical) and Denies dyspnea Respiratory Respiratory: Denies change in phlegm color, Denies cough and Denies dyspnea Gastrointestinal Gastrointestinal: Reports as per HPI, Reports abdominal pain, Denies bloating, Denies hematochezia, Reports diarrhea, Reports nausea and Denies vomiting PFSH All Active Problems (Updated 07/24/23 @ 23:52 by Graciela Nice NP) Abdominal pain (Acute) Actinic keratosis (Acute) Screening for malignant neoplasm of cervix (Acute) Bilateral primary osteoarthritis of knee (Acute 12/30/17) Medical History Rotator cuff tear Nephrolithiasis Diverticulosis of colon History of peptic ulcer HPV in female Palpitations Onychomycosis of toenail Lower back pain Migraine Lumbar radiculitis Rupture of right biceps tendon Lumbar radiculopathy, right Thoracic back pain Shingles NSAID long-term use Carotid arterial disease GERD (gastroesophageal reflux disease) Situational depression Acute diarrhea IBS (irritable bowel syndrome) UTI (urinary tract infection) Encounter for medication monitoring Abdominal pain Frequent loose stools Flushing Colitis Eustachian tube dysfunction Enteritis History of mammogram Muscle spasm Osteopenia Lesion of skin of nose Dry eye Skin lesions Arthritis Anxiety disorder Chronic pain Insomnia Surgical History History of lumbar fusion section x Open Carpal Tunnel release R Colonoscopy - MAC (11/25/17) Appendectomy Social History Smoking/Tobacco Use Status: Former Tobacco Use Quit Date: 09/30/85 Smoking risk assessment performed?: Yes Alcohol Intake: current Alcohol Intake frequency: a few times a month Drug use: Never Do you feel safe at home: Yes Do you feel safe in your relationship?: Yes Exam Narrative Exam Narrative: Constitutional: Alert and oriented x3. Appears stated age. Normal body habitus. Head: Normocephalic, no trauma. Eyes: Pupils PERRL, Red reflex noted, EOM's intact. Eyelids symmetrical without lesions, discharge, or swelling. Chest: RRR, Normal S1, S2, distal pulses intact. Resp: Lungs clear to auscultation bilaterally, no wheezes, rales, or rhonchi. Abdomen: Soft, non-distended, hypoactive all 4 quadrants, tenderness with palpation midepigastrium. Musculoskeletal: Unable to assess gait, 5/5 strength to all four extremities. Skin: No suspicious rashes or lesions. Capillary refill less than 2 sec. Neurologic: Cranial nerves II-XII intact. Alert and oriented x 3. Motor: No deficits noted. Hematologic/Lymphatic: No ecchymosis, no lymphadenopathy. Course Vital Signs Vital signs: Vital Signs Pulse 90 07/24/23 20:53 Respiratory Rate 16 07/24/23 20:53 Blood Pressure 140/70 07/24/23 20:53 Pulse Oximetry 98 07/24/23 20:53 Pulse 90 07/24/23 20:53 Respiratory Rate 16 07/24/23 20:56 Respiratory Effort Normal 07/24/23 20:56 Respiratory Depth Normal 07/24/23 20:56 Respiratory Pattern Normal 07/24/23 20:56 Blood Pressure 140/70 07/24/23 20:53 Blood Pressure Position Sitting 07/24/23 20:53 Pulse Oximetry 98 07/24/23 20:53 Oxygen Delivery Method Room Air 07/24/23 20:53 Oxygen Flow Rate 0 07/24/23 20:53 Pain Level 8 07/24/23 20:56 Lab/Test Results Lab/Test Results: Laboratory Tests Range/Units 07/24/23 20:57 WBC (4.4-10.8) 10^3/uL 7.41 RBC (3.93-5.22) 10^6/uL 4.63 Hgb (11.2-15.7) g/dL 13.3 Hct (36.0-46.0) % 41.0 MCV (80-95) fL 89 MCH (27.0-33.0) pg 28.7 MCHC (32.0-36.0) % 32.4 RDW (11.7-14.6) % 13.4 Plt Count (130-400) 10^3/uL 240 MPV (8.0-11.0) fL 8.6 Immature Gran % 0.3 Neutrophils % 61.8 Lymphocytes % 27.5 Monocytes % 7.8 Eosinophils % 1.9 Basophils % 0.7 Nucleated RBC % (0.0-0.3) % 0.0 Absolute Neutrophils (1.2-6.7) 10^3/uL 4.58 Absolute Lymphocytes (1.2-3.4) 10^3/uL 2.04 Absolute Monocytes (0.1-0.8) 10^3/uL 0.58 Absolute Eosinophils (0.0-0.7) 10^3/uL 0.14 Absolute Basophils (0.0-0.2) 10^3/uL 0.05 PT (9.1-11.1) sec 10.2 INR (0.9-1.1) 1.0 Sodium (136-145) mmol/L 140 Potassium (3.5-5.1) mmol/L 4.5 Chloride (98-107) mmol/L 106 Carbon Dioxide (21.0-32.0) mmol/L 27.6 Anion Gap (3-11) mmol/L 6.4 BUN (7-18) mg/dL 22 H Creatinine (0.55-1.02) mg/dL 0.8 Est GFR (CKD-EPI 2020) (mL/min/1.73m2) 79.71 Glucose (74-106) mg/dL 112 H Calcium (8.5-10.1) mg/dL 8.8 Magnesium (1.8-2.4) mg/dL 2.0 Total Bilirubin (0.2-1.0) mg/dL 0.4 AST (15-37) U/L 20 ALT (14-59) U/L 33 Alkaline Phosphatase (46-116) U/L 98 Troponin I (<or=60) ng/L < 50 Total Protein (6.4-8.2) g/dL 7.0 Albumin (3.4-5.0) g/dL 3.6
[2023-07-24] MEDS: Famotidine 20 MG/2 ML VIAL IVP (22:10)
[2023-07-24] MEDS: Ondansetron 4 MG/2 ML VIAL IVP (22:10)
[2023-07-24] MEDS: Normal Saline 500 ML IV (22:11)
[2023-07-24] MEDS: fentaNYL 100 MCG/2 ML VIAL 50 MCG IVP (22:11)
[2023-07-24] MEDS: Normal Saline - Diluent 50 ML VIAL IJ (23:01)
--- NOTE | 2023-07-24 23:55 | DI.VRAD_ITS ---
PROCEDURE INFORMATION: Exam: CT Chest Without Contrast; Diagnostic Exam date and time: 07/24/2023 10:58 PM Age: 67 years old Clinical indication: Nausea; Abdominal pain; Other: Mid epigastric TECHNIQUE: Imaging protocol: Diagnostic computed tomography of the chest without contrast. COMPARISON: CT ABDOMEN PELVIS W 01/25/2022 10:48 AM FINDINGS: Lungs: There is heterogeneous attenuation of the pulmonary parenchyma, consistent with air trapping from underlying small airways disease. There are mild bronchiectatic changes seen within the lung bases bilaterally. Scattered mild patchy ground-glass opacities within the lungs. These findings are nonspecific and may represent hypoventilatory change,edema, hemorrhage, or an infectious/inflammatory process (acute or chronic). Tiny 2 mm solitary pulmonary nodule present within the left upper lobe of the lung.For patients at low risk (minimal or absent history of smoking and of other known risk factors), no routine follow-up is indicated. For patients at high risk (history of smoking or of other known risk factors), consider optional CT Chest at 12 months. (Reference: Nimisha). Mild left lower lobe atelectatic changes and scarring. No evidence of focal consolidation. Pleural spaces: There is no evidence of pneumothorax. There are no pleural effusions present. Heart: Unremarkable. No cardiomegaly. No pericardial effusion. Lymph nodes: No evidence of adenopathy. Vasculature: The pulmonary arteries are not enlarged. Intraperitoneal space: Please see CT of the abdomen and pelvis. Bones/joints: The thoracic spine demonstrates mild degenerative changes at multiple levels. The thoracolumbar spine demonstrates moderate degenerative changes at multiple levels.There is mild atherosclerotic calcification of the coronary arteries. The skeletal structures and soft tissues show no evidence of fracture or other acute processes. Soft tissues: The soft tissues of the extrathoracic region are unremarkable. IMPRESSION: 1. There is heterogeneous attenuation of the pulmonary parenchyma, consistent with air trapping from underlying small airways disease. 2. Scattered mild patchy ground-glass opacities within the lungs. These findings are nonspecific and may represent hypoventilatory change,edema, hemorrhage, or an infectious/inflammatory process (acute or chronic). 3. Tiny 2 mm solitary pulmonary nodule present within the left upper lobe of the lung.For patients at low risk (minimal or absent history of smoking and of other known risk factors), no routine follow-up is indicated. For patients at high risk (history of smoking or of other known risk factors), consider optional CT Chest at 12 months. (Reference: Nimisha). REFERENCES: Nimisha Waddell et al. Guidelines for Management of Incidental Pulmonary Nodules Detected on CT Images: From the Fleischner Society 2017. Radiology. 2017;284(1):228-243. PROCEDURE INFORMATION: Exam: CT Abdomen And Pelvis Without Contrast Exam date and time: 07/24/2023 10:58 PM Age: 67 years old Clinical indication: Nausea; Abdominal pain; Other: Mid epigastric TECHNIQUE: Imaging protocol: Computed tomography of the abdomen and pelvis without contrast. COMPARISON: CT ABDOMEN PELVIS W 01/25/2022 10:48 AM FINDINGS: Lungs: Please see CT of the lungs and chest. Diaphragm: A small hiatal hernia is present. Liver: There are no focal liver lesions present. There is no evidence of intrahepatic or extrahepatic biliary ductal dilation. Gallbladder and bile ducts: The gallbladder is normal. There is no cholelitiasis, wall thickening or pericholecystic fluid to suggest cholecystitis. Pancreas: The pancreas is normal. Spleen: The spleen is normal. Adrenal glands: The adrenal glands are normal without evidence of mass or enlargement. Kidneys and ureters: The kidneys are normal no evidence of nephrolithiasis or hydronephrosis. The ureters are normal caliber and follow a normal caliber and course. Stomach and bowel: The stomach is incompletely distended. There may be mild gastric wall thickening. Consider early gastritis. There are fluid-filled loops of small bowel with air-fluid levels. No significant bowel wall thickening or inflammatory changes. No evidence of obstruction. Consider early enteritis. Consider gastroenteritis. There is moderate increased colonic fecal content. The colon is mildly distended. These findings suggest a moderate degree of constipation. Clinical correlation recommended. There is fecalization of the small bowel. Consider chronic constipation. Appendix: A normal appendix is identified. There is no evidence of distention or periappendiceal inflammation to suggest appendicitis. Intraperitoneal space: No free air. No significant fluid collection. Vasculature: The aorta demonstrates mild atherosclerotic calcification. . No abdominal aortic aneurysm. The arterial peripheral vasculature demonstrates diffuse mild atherosclerotic calcification. The inferior venacava appears normal.The portal, mesenteric and splenic veins are patent. Lymph nodes: No enlarged lymph nodes. Urinary bladder: The bladder is normal. Reproductive: There has been a hysterectomy. No adnexal cysts or masses are identified. Bones/joints: Postsurgical changes present extending from L4 through S1 with L5-S1 fusion posterior hardware and laminectomies. The fusion appears solid. There are moderate degenerative changes of the remaining lumbar spine. Soft tissues: Soft tissue stranding present within the upper abdomen adjacent to the celiac and superior mesenteric arteries. Consider early vasculitis. IMPRESSION: 1. Soft tissue stranding present within the upper abdomen adjacent to the celiac and superior mesenteric arteries. Consider early vasculitis. 2. The stomach is incompletely distended. There may be mild gastric wall thickening. Consider early gastritis. There are fluid-filled loops of small bowel with air-fluid levels. No significant bowel wall thickening or inflammatory changes. No evidence of obstruction. Consider early enteritis. Consider gastroenteritis. Dictated and Authenticated by: Harshil Stevens MD. Ordering:MYLES Owens MD
--- NOTE | 2023-07-25 00:22 | W.EDPROG ---
Date of service: 07/25/23 Time of Service: 00:22 Medical Decision Making 12: 22 patient resting comfortably no acute distress. Abdomen soft nontender nondistended. Patient remains hemodynamically stable. No nausea or vomiting here in department. Labs largely unremarkable. Pending second troponin. Noncontrast CT showing nonspecific findings in the upper abdomen consider gastritis, enteritis most likely given symptomatology history and physical. There was mention of possible celiac and SMA vasculitis given location of upper abdominal stranding however this is not a CT angio study as patient has severe allergy to IV dye. Given hemodynamic stability improvement of symptomatology unremarkable labs lower suspicion for acute vasculitis at this time. We will continue to trial analgesia, GI meds and acid suppression given patient's extensive history of GERD NSAID use and IBS. Likely home care instructions and strict return precautions pending second troponin 1: 02 patient feeling better, patient removing her own leads and asking to leave. Discharge Plan Disposition Patient Disposition: Home Condition: Improving Discharge Details Chief Complaint: Chest Pain Clinical Impression: Abdominal pain Primary Care Provider: Georgia Correa V ED Provider: Phillip Devlin Home Meds and New Rx's Prescriptions: No Action duloxetine [Cymbalta] 20 mg capsule,delayed release(DR/EC) 20 mg PO BID Hold Instructions: Prescription Finished escitalopram oxalate [Lexapro] 10 MG tablet 10 mg PO DAILY famotidine 20 mg tablet 20 mg PO DAILY celecoxib [Celebrex] 200 mg capsule 200 mg PO BID Rx Instructions: with a meal trazodone 150 MG tablet 150 mg PO DAILY omeprazole 20 MG capsule,delayed release(DR/EC) 20 mg PO DAILY diclofenac sodium 75 MG tablet,delayed release (DR/EC) 75 mg PO BID Hold Instructions: Prescription Finished cyclobenzaprine 10 MG tablet 10 mg PO TID PRN PRN Patient Comments: Patient states she has not taken this in a few weeks. Patient states she takes this as needed. rizatriptan [Maxalt] 10 MG tablet 10 mg PO DIRECTED Patient Comments: last week acetaminophen [Tylenol Arthritis Pain] 650 MG tablet extended release 650 mg PO DAILY Hold Instructions: Adverse Reaction oxycodone 10 MG tablet 10 mg PO BID PRN Hold Instructions: Prescription Finished Discharge Instructions Instructions: Abdominal Pain (ED) Additional Instructions: Please follow-up closely with your primary care physician. Please return to the emergency department for any worsening symptoms
[2023-07-25 00:23] LABS: Troponin I < 50 ng/L (<or=60)
[2023-07-25] MEDS: Mylanta Suspension 30 ML CUP PO (00:27)
[2023-07-25] MEDS: ACETAMINOPHEN 1,000 MG/100 ML BTL 400 MG IVPB (00:28)
[2023-07-25] MEDS: Pantoprazole 40 MG VIAL IVP (00:28)
== END 2023-07-25 01:13 | disposition home or self-care (01) ==
PROVIDERS: Registered Nurse Emergency; Emergency Provider Emergency Medicine; PCP Family Medicine
DX: R10.9 Unspecified abdominal pain (principal)
CPT/HCPCS: 00123; 71250; 80053; 93005; 96374; 96375; 99284; 74176; 83735; 84484; 85025; 85610; 93010; J0131; J2405; J3010

== ENCOUNTER 2023-10-14 15:22 | Outpatient (CLI) | payer MEDICARE, BC, SELFPAY ==
--- NOTE | 2023-10-14 15:00 | DI.RAD_ITS ---
Exam(s) XR KNEE LT 3V AP,LAT,VIC EXAM: XR KNEE LT 3V AP,LAT,VIC CLINICAL HISTORY: knee pain. TECHNIQUE: 2D digital imaging was performed. Three views. COMPARISON: CR LEFT KNEE 3 VIEW COMPLETE from 12/24/2016 CR LEFT KNEE LIMITED 1 OR 2 VIEWS from 03/11/2017 CR RIGHT KNEE LIMITED 1 OR 2 VIEW from 03/11/2017 FINDINGS: BONES: No acute fracture is present. No bony destructive lesion is seen. Prior ACL repair. Spurrin g from the femoral condyles and tibial plateaus. Chronic appearing bony density at upper pole manuel lla. Small enthesophyte. JOINTS: The knee is normally aligned. No joint effusion is seen. Femoral tibial joint spaces are ma intained SOFT TISSUE: Normal. IMPRESSION: Stable postsurgical and degenerative changes. DATA REPOSITORY: RADIATION DOSE DELIVERED:
--- NOTE | 2023-10-14 15:00 | DI.RAD_ITS ---
Exam(s) XR KNEE RT 3V AP,LAT,VIC EXAM: XR KNEE RT 3V AP,LAT,VIC CLINICAL HISTORY: knee pain. TECHNIQUE: 2D digital imaging was performed. Three views. COMPARISON: CR XR KNEE LT 3V AP,LAT,VIC from 10/14/2023 FINDINGS: BONES: No acute fracture is present. No bony destructive lesion is seen. Enthesophyte upper pole of the patella. JOINTS: The knee is normally aligned. No joint effusion is seen. spurring at the articular aspect o f the patella. The femoral tibial Joint spaces are maintained. Faint chondrocalcinosis. SOFT TISSUE: Normal. IMPRESSION: degenerative changes greatest of the patellofemoral joint. DATA REPOSITORY: RADIATION DOSE DELIVERED:
== END 2023-10-14 15:23 | disposition home or self-care (01) ==
LOC: DIORS 15:22
PROVIDERS: PCP Family Medicine; Referring Provider Family Medicine; Visit Provider Student in an Organized Health Care Education/Training Program
DX: M17.11 Unilateral primary osteoarthritis, right knee; M17.12 Unilateral primary osteoarthritis, left knee
CPT/HCPCS: 20610; 73562; 99213; J1040

== ENCOUNTER → 2023-12-16 13:21 | Outpatient (BNVA) | payer MEDICARE, BC, SELFPAY | PROVIDERS: PCP Family Medicine; Visit Provider Student in an Organized Health Care Education/Training Program | DX: M17.0 Bilateral primary osteoarthritis of knee (principal) | CPT/HCPCS: 99214 ==

== ENCOUNTER → 2023-12-19 01:39 | Outpatient (CLI) | payer MEDICARE, BC, SELFPAY ==
--- NOTE | 2023-12-19 | DI.MRI_ITS ---
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 TECHNIQUE: Multiplanar multisequence MRI of the Lumbar spine was performed. COMPARISON: MR MR LUMBAR SPINE WO/W from 04/28/2020 CR XR DEXA BONE DENSITY W/WO TAMI from 08/28/[address] CHEST/ABD/PEL WO from 07/24/2023 CR XR KNEE RT 3V AP,LAT,VIC from 10/14/2023 FINDINGS: Bones: Posterior fusion hardware is now seen from L3 through S1. There is fusion between the L4-5 disc. The marrow signal characteristics are unremarkable. Cord: The conus tip ends at the T12 level. It is of normal size and signal intensity. T12-L1: Mild disc osteophytes no focal disc herniation is present. No central spinal canal stenosis. No neural foraminal stenosis. L1-2: No focal disc herniation is present. Facet degenerative changes mildly encroach into the trans verse dimension of the central canal. No neural foraminal stenosis. L2-3:Moderate loss of disc height. Endplate osteophytes. Facet degenerative changes. Severe left a nd moderate right neural foraminal narrowing. Moderate central canal stenosis, with narrowing of the transverse dimension of the canal.. No focal disc herniation is present. L3-4: No focal disc herniation is present. No central spinal canal stenosis.No neural foraminal johnathan nosis. L4-5: Fusion at the disc. Stable spondylolisthesis. Laminectomy defect. No central spinal canal st enosis.Severe right neural foraminal narrowing. L5-S1: Laminectomy defect. Facet degenerative changes.No focal disc herniation is present. No centr al spinal canal stenosis.Mild bilateral neural foraminal narrowing. The visualized SI joints and sacrum are unremarkable. Nerve root sheath cyst is again noted at the S 2 level. Soft tissues: The paraspinal soft tissues are unremarkable. IMPRESSION: Status post posterior fusion, L3 through L5. Degenerative disc changes and facet degenerative changes at L2-3 with moderate central canal stenosis and moderate to severe neural foraminal narrowing. DATA REPOSITORY:
== END ==
PROVIDERS: PCP Family Medicine; Visit Provider Family Medicine
DX: M43.26 Fusion of spine, lumbar region (principal)
CPT/HCPCS: 72148

== ENCOUNTER 2023-12-27 01:25 | Outpatient (CLI) | payer MEDICARE, BC, SELFPAY ==
[2023-12-27 12:35] LABS: HCT 44.5 % (36.0-46.0); HGB 14.1 g/dL (11.2-15.7); MCH 28.1 pg (27.0-33.0); MCHC 31.7 % (32.0-36.0); MCV 89 fL (80-95); MPV 8.7 fL (8.0-11.0); Platelet Count 253 10^3/uL (130-400); RBC 5.01 10^6/uL (3.93-5.22); RDW 13.7 % (11.7-14.6); RDW-SD 44.8 fL; WBC 6.48 10^3/uL (4.4-10.8)
[2023-12-27 13:04] LABS: Anion Gap 7.9 mmol/L (3-11); BUN 22 mg/dL (7-18); CO2 27.1 mmol/L (21.0-32.0); CREATININE 0.9 mg/dL (0.55-1.02); Chloride 107 mmol/L (98-107); Estimated GFR 68.77 (mL/min/1.73m2); Glucose 113 mg/dL (74-106); Potassium 4.9 mmol/L (3.5-5.1); Sodium 142 mmol/L (136-145)
== END 2023-12-27 01:26 | disposition home or self-care (01) ==
LOC: LBO 01:26
PROVIDERS: PCP Family Medicine; Visit Provider Student in an Organized Health Care Education/Training Program
DX: M17.0 Bilateral primary osteoarthritis of knee (principal); Z01.818 Encounter for other preprocedural examination
CPT/HCPCS: 36415; 80048; 85027

== ENCOUNTER 2023-12-27 11:21 | Outpatient (CLI) | payer MEDICARE, BC, SELFPAY ==
--- NOTE | 2023-12-27 11:00 | DI.RAD_ITS ---
Exam(s) XR STANDING ALIGNMENT EXAM: XR STANDING ALIGNMENT CLINICAL HISTORY: PRE OP BILAT TKAs. TECHNIQUE: 2D digital imaging was performed. Standing AP views were performed from the pelvis throu gh the ankles. COMPARISON: CR XR KNEE LT 3V AP,LAT,VIC from 10/14/2023 CR XR KNEE RT 3V AP,LAT,VIC from 10/14/2023 FINDINGS: BONES: No acute fracture is present. No bony destructive lesion is seen. Leg length discrepancy: JOINTS: Knees: Left knee: Prior ACL repair. Spurring from the femoral condyles and tibial plateaus. Mild lateral femoral tibial joint space narrowing. The right knee shows no significant joint space narrowing and mild periarticular spurring. The ankle joints are unremarkable. The hip joints are unremarkable. SOFT TISSUE: Normal. IMPRESSION: Degenerative changes of the left knee. No significant leg length discrepancy. DATA REPOSITORY: RADIATION DOSE DELIVERED:
== END 2023-12-27 11:22 | disposition home or self-care (01) ==
LOC: DIORS 11:21
PROVIDERS: PCP Family Medicine; Referring Provider Family Medicine; Visit Provider Physician Assistant
DX: M17.0 Bilateral primary osteoarthritis of knee (principal)
CPT/HCPCS: 77073

== ENCOUNTER 2024-01-07 12:54 | Observation (INO) | payer MEDICARE, BC, SELFPAY ==
[2024-01-07] VITALS (29 sets, daily range): BP systolic 72–142; BP diastolic 54–89; PULSE 88–103; RESP 10–29; TEMP 35.6–37; O2SAT 84–98; BMI 30.9
[2024-01-07] MEDS: Celecoxib 200 MG CAP 400 MG PO (08:55)
[2024-01-07] MEDS: Acetaminophen 500 MG TAB 1000 MG PO ×3 (08:55→20:17)
[2024-01-07] MEDS: Lactated Ringers 1,000 ML 80 ML IV ×2 (09:27→14:26)
--- NOTE | 2024-01-07 10:02 | ANES.PREOP_ITS ---
General Info Date of Service Date Performed: 01/07/24 Height: 5 ft 3 in Weight: 79.1 kg Body Mass Index (BMI): 30.9 Surgical Procedure: Operation Date: 01/07/24 11:35 Proposed Procedure Side Surgeon p Knee Total Arthroplasty Bilateral Bilateral Elder Ramires MD Meds Allergies and Home Medications Allergies Allergy/AdvReac Type Severity Reaction Status Date / Time gabapentin AdvReac Mild confused Verified 01/07/24 08:42 iv dye Allergy Severe Hives Uncoded 01/07/24 08:42 Home Medication Medication Instructions Recorded omeprazole 20 mg capsule,delayed 20 mg PO DAILY 12/30/13 release trazodone 150 mg tablet 150 mg PO DAILY 12/30/13 escitalopram oxalate 10 mg tablet 10 mg PO DAILY 03/11/17 (Lexapro) acetaminophen 650 mg 650 mg PO DAILY 06/18/17 tablet,extended release (Tylenol Arthritis Pain) cyclobenzaprine 10 mg tablet 10 mg PO TID PRN PRN 06/18/17 rizatriptan 10 mg tablet (Maxalt) 10 mg PO DIRECTED 06/18/17 duloxetine 20 mg capsule,delayed 20 mg PO BID 10/01/19 release (Cymbalta) celecoxib 200 mg capsule (Celebrex) 200 mg PO BID 04/11/23 ascorbic acid (vitamin C) 1,000 mg 2,000 mg PO DAILY 10/14/23 tablet,extended release magnesium 200 mg tablet 400 mg PO DAILY 10/14/23 Current Visit Medications: Current Medications Generic Name Dose Route Start Last Admin Trade Name Freq PRN Reason Stop Dose Admin Acetaminophen 1,000 mg 01/07/24 06:00 01/07/24 08:55 Acetaminophen 500 Mg Tab PO 02/06/24 05:59 1,000 mg PREOP CICI Administration Celecoxib 400 mg 01/07/24 06:00 01/07/24 08:55 Celecoxib 200 Mg Cap PO 02/06/24 05:59 400 mg PREOP CICI Administration Gabapentin 300 mg 01/07/24 06:00 Gabapentin 300 Mg Cap PO 02/06/24 05:59 PREOP CICI Ringer's Solution 1,000 mls @ 80 mls/hr 01/07/24 06:00 01/07/24 09:27 IV 02/05/24 23:59 80 mls/hr INFUSION CICI Administration Cefazolin Sodium/Dextrose 2 gm in 50 mls @ 100 mls/hr 01/07/24 06:00 Ancef Duplex IVPB 02/05/24 23:59 PREOP CICI Tranexamic Acid/Sodium Chloride 1,000 mg in 100 mls @ 600 mls/hr 01/07/24 06:00 IVPB 02/05/24 23:59 PREOP CICI Tranexamic Acid/Sodium Chloride 1,000 mg in 100 mls @ 600 mls/hr 01/07/24 06:00 IVPB 02/05/24 23:59 DIRECTED CICI IV Miscellaneous Supplies 1 each 01/07/24 06:00 Iv Access IV 02/05/24 23:59 DIRECTED CICI Sodium Chloride 0 ml 01/07/24 06:00 Normal Saline Flush 10 Ml Syr IV 02/05/24 23:59 PRN PRN Sodium Chloride 0 ml 01/07/24 06:00 Normal Saline 10 Ml Vial IJ 02/05/24 23:59 DIRECTED PRN Sterile Water 0 ml 01/07/24 06:00 Water,Injection,Sterile 10 Ml Vial IJ 02/05/24 23:59 DIRECTED PRN PFSH Active Problems Active Problems: Problem Status Onset Code Actinic keratosis L57.0 Carotid arterial disease I77.9 Screening for malignant neoplasm of cervix Z12.4 Bilateral primary osteoarthritis of knee 12/30/17 M17.0 Medical History Medical History Rotator cuff tear Nephrolithiasis Diverticulosis of colon History of peptic ulcer HPV in female Palpitations Onychomycosis of toenail Lower back pain Migraine Lumbar radiculitis Rupture of right biceps tendon Lumbar radiculopathy, right Thoracic back pain Shingles NSAID long-term use GERD (gastroesophageal reflux disease) Situational depression Acute diarrhea IBS (irritable bowel syndrome) UTI (urinary tract infection) Encounter for medication monitoring Abdominal pain Frequent loose stools Flushing Colitis Eustachian tube dysfunction Enteritis History of mammogram Muscle spasm Osteopenia Lesion of skin of nose Dry eye Skin lesions Arthritis Anxiety disorder Chronic pain Insomnia Surgical History Surgical History Hx of arthroscopic knee surgery History of bunionectomy History of lumbar fusion section x Open Carpal Tunnel release R Colonoscopy - MAC (11/25/17) Appendectomy Tobacco Smoking/Tobacco Use Status: Former Tobacco Use Alcohol Alcohol Intake: current Alcohol intake frequency: a few times a month Alcohol type: wine Substance Use Substance use: Never Substance use type: does not use Vital Signs and Lab Results Vital Signs Most Recent Vital Signs in EMR: Most Recent Vital Signs Temp Pulse Resp BP Pulse Ox 36.9 C 88 16 142/80 H 96 01/07/24 09:15 01/07/24 09:15 01/07/24 09:15 01/07/24 09:15 01/07/24 09:15 Lab Results Blood Type / Crossmatch: No Data to Display Complete Blood Count: White Blood Count 6.48 10^3/uL (4.4-10.8) 12/27/23 12:26 Red Blood Count 5.01 10^6/uL (3.93-5.22) 12/27/23 12:26 Hemoglobin 14.1 g/dL (11.2-15.7) 12/27/23 12:26 Hematocrit 44.5 % (36.0-46.0) 12/27/23 12:26 Platelet Count 253 10^3/uL (130-400) 12/27/23 12:26 Complete Metabolic Panel: Sodium 142 mmol/L (136-145) 12/27/23 12:26 Potassium 4.9 mmol/L (3.5-5.1) 12/27/23 12:26 Chloride 107 mmol/L (98-107) 12/27/23 12:26 Carbon Dioxide 27.1 mmol/L (21.0-32.0) 12/27/23 12:26 BUN 22 mg/dL (7-18) H 12/27/23 12:26 Creatinine 0.9 mg/dL (0.55-1.02) 12/27/23 12:26 Est GFR (CKD-EPI 2020) 68.77 (mL/min/1.73m2) 12/27/23 12:26 Calcium 9.0 mg/dL (8.5-10.1) 12/27/23 12:26 Glucose 113 mg/dL (74-106) H 12/27/23 12:26 Liver Function Panel: No Data to Display Coagulation Panel: No Data to Display Cardiac Panel: No Data to Display Arterial Blood Gas: No Data to Display Venous Blood Gas: No Data to Display Pancreas Panel: No Data to Display Thyroid Panel: No Data to Display Infectious Disease: No Data to Display Blood Cultures: No Data to Display Toxicology Panel: No Data to Display Imaging and Studies Imaging and Studies Study information below may be from another EMR and interpreted by another provider. Please see original notes in EMR for more complete details. EKG Summary: EKG PATIENT NAME: Molly Cronin UNIT #: [id number] ORDERING PROVIDER: Kyleigh Delgado M.D. PRIMARY CARE PROVIDER: GEORGIA JOYCE MD DATE/TIME OF SERVICE: 07/24/232055 : 1955 PERFORMING LOCATION: ER APPROVED REPORT Exam: Resting ECG Reason for Exam: chest pain Patient Location: E HR:88 bpm ECG Measurements Heart Rate 88 AXIS NH 162 P 28 QRSd 96 QRS 2 QT 345 T45 QTc 418 Conclusion Sinus rhythm...V-rate 60- [address]. [address] segment or T wave abnormalities to suggest occlusive CT <Electronically signed by Kyleigh Delgado M.D. in OV> E-Sign Date: 07/25/23 E-Sign Time: 20 ADDENDUM APPROVED REPORT Exam: Resting ECG Reason for Exam: chest pain Patient Location: E HR:88 bpm ECG Measurements Heart Rate 88 AXIS NH 162 P 28 QRSd 96 QRS 2 QT 345 T45 QTc 418 Conclusion Stress Test Summary: Patient Name: MOLLY CRONIN Unit #: [id number] Loc: DI Ordering Provider: COLE PETIT M.D. Status: REG CLI Primary Care Provider: GEORGIA JOYCE M.D. Date of Exam: 02/07/15 Sex: F : 1955 Age: 59 Exam(s) [id number] NM:MPI Resting & Stress GRP *[facility]* *[facility]* [address] [place] [address] Myocardial Perfusion Imaging - SPECT Cassius protocol Date of study: 02/07/2015 *PATIENT PRESENTATION* Height: 160cm (63in ) Blood Pressure: Weight: 69.1kg (152lb ) BSA: 1.77m^2 Ordering physician: Omar Wright Impressions: Normal perfusion by Tc99m Sestamibi Imaging. Summary: 1. Myocardial perfusion imaging: No myocardial perfusion defects noted. 2. The calculated left ventricular ejection fraction after stress: 66%. History: PT STATES SHE HAS BEEN HAVING CHEST PRESSURE SOMETIMES ASSOCIATED W/ SOB. SHE STATES SOMETIMES HER HEART PAUSES. SHE DENIES ANY RADIATION. SHE LOCALIZES THE PRESSURE SUBSTERNALLY. PT STATES IT LASTS FOR A COUPLE MINUTES WHEN IT OCCURS. THE PRESSURE WILL WAKE HER UP AND IS NOT RELATED TO EXERTION. Risk factors: PT STATES SHE IS ACTIVE, BUT DOES NOT HAVE A SET TIME/DISTANCE SHE DOES PER DAY. REMOTE TOBACCO USE ALLERGIES: NKDA MEDICATIONS: BUPROPION 150MG DAILY, DICLOFENAC 50MG DAILY, GLUCOSAMINE, OMEPRAZOLE 20MG BID, PANTOPRAZOLE 40MG DAILY, TRAZODONE 150MG BID, UBIDECARENONE 30MG DAILY. Imaging Technique: Protocol: Cassius protocol. Acquisition: Gated SPECT; 1 day - rest/stress. The patient was imaged in the supine position. Attenuation correction used. Isotope administration: - Rest. Tc[99m]-sestamibi. Dose: 10.6mCi. Injection time: 09:05 AM. Injection to stress time: 00:45. - Stress. Tc[99m]-sestamibi. Dose: 32.4mCi. Injection time: 11:25 AM. 1-2 min before end of exercise Baseline ECG: NSR @81BPM Stress protocol: + +---+ + Stage HR BP (mmHg) + +---+ + Baseline supine 81 134/90 (105) + +---+ + Baseline standing 98 124/94 (104) + +---+ + Stage I; 1.7mph, 10degrees; 3 min 130 180/78 (112) + +---+ + Stage II; 2.5mph, 12degrees; 3 min 155 210/60 (110) + +---+ + Recovery; 1 min 110 144/66 (92) + +---+ + Recovery; 3 min 102 134/82 (99) + +---+ + Recovery; 6 min 101 124/82 (96) + +---+ + * Stress results: Maximal heart rate during stress was 157bpm (99% of maximal predicted heart rate). The maximal predicted heart rate was 159bpm. The rate-pressure product for the peak heart rate and blood pressure was 13987hq Hg/min. Stress ECG: EXERCISE STOPPED AT 6 MINUTES 31 SECONDS DUE TO PT REQUEST BECAUSE OF INCREASING BILATERAL KNEE PAIN. APPROXIMATELY 7 METS, CASSIUS PROTOCOL APPROPRIATE BP RESPONSE AVERAGE FUNCTIONAL CAPACITY NO ECTOPY NO ANGINA. Abdullahi treadmill score: 7. This score predicts a low risk of cardiac events. Myocardial perfusion: Imaging information: gated. No myocardial perfusion defects noted. Ventricular Function (Wall Motion): The calculated left ventricular ejection fraction after stress: 66%. Study data: [facility] INFO: [id number] This study was interpreted by [facility]. Study status: Routine. Consent: The risks, benefits, and alternatives to the procedure were explained to the patient and informed consent was obtained. Procedure: Initial setup. A baseline ECG was recorded. Surface ECG leads and manual cuff blood pressure measurements were monitored. Heart sounds: Normal. Lung sounds: Normal. Treadmill exercise testing was performed using the Cassius protocol. Study completion: All catheters inserted during the procedure were removed. The patient tolerated the procedure well and was discharged from the lab. Discharge: The patient left the laboratory in stable condition. Birthdate: Patient birthdate: 1955. Sex: Gender: female. Study date: Study date: 07-Feb-2015. Electronically signed by Cole Petit MD 02/07/2015 18:23 Dictated by: BELA COMBS M.D.02/07/15 1000 <Electronically signed by BELA COMBS M.D.>02/08/15 1552 Disclaimer: The radiologist is signing only the Nuclear Medicine MPI Imaging exam portion of the report. Transcribed by: Harshil Tee02/08/15 1550 CC: This is privileged, confidential information intended only for the provider named. Any use or distribution by any person other than this provider is strictly prohibited. If you receive this report in error, please notify us immediately at [phone] and return the original report to us at the address above. Thank-you. Echocardiogram Summary: Echocardiogram Report PATIENT NAME: MOLLY CRONIN UNIT #: [id number] ADMITTING PROVIDER: SOPHIA LEWIS MD PRIMARY CARE PROVIDER: GEORGIA JOYCE M.D. DATE OF SERVICE: 12/09/14 : 1955 DATE: DECEMBER 09, 2014 ____ IN PATIENT _X__ OUT-PATIENT ORDERING PHYSICIAN: Dr. Georgia Joyce and Dr. Cole Petit HEIGHT: 5 FT 3 IN WEIGHT: 150 LBS BSA: 1.7 m2 Blood Pressure 108/68 STUDY INDICATIONS: Chest heaviness and shortness of breath. FINDINGS: LEFT VENTRICLE/LVEF: Left ventricle is normal in size and systolic function. There is no left ventricular hypertrophy. The estimated ejection fraction is 65%. RIGHT VENTRICLE: Normal size and normal systolic function. AORTIC VALVE: Structurally normal, no stenosis or regurgitation. MITRAL VALVE: Normal. TRICUSPID VALVE: Normal. RSV/PA/RIGHT ATRIAL PRESSURE: Pulmonary artery pressure is normal at 20. PULMONIC VALVE: Normal. ATRIA: Normal. DIASTOLIC INDICES: Normal. GREAT VESSELS: Normal. PERICARDIUM: No effusion. SUMMARY: This is a normal study. There is normal left ventricular and right ventricular size and systolic function. The ejection fraction is 65%. MEASUREMENTS: LVESD 27 mm LVEDD 40 mm IVS 7 mm PW 7 mm Ascending Aorta mm AO. Root 30 mm AV mm AO Velocity m/sec LA 13 cm sq. RA 9 cm sq. Right atrial pressure mmHg AV-PK/M mmHg LVOT size mm LVOT gradient mmHg Deceleration time msec Isovolumic relaxation time msec E/A ratio IVC collapses ___X___ Yes No Dictated by: SOPHIA LEWIS MD Dictated:: 12/10/14 1619 <Electronically signed by SOPHIA LEWIS M.D.> 01/03/15 1010 Transcribed Date: 12/14/14 Transcribed Time: 857 By: This is privileged, confidential information, intended only for the provider named. Any use or distribution by any person other than this provider is strictly prohibited. If you receive this report in error, please notify us immediately at [phone] and return the original report to us at the address above. Thank you. Carotid Artery Summary:: Patient Name: MOLLY CRONIN Unit #: [id number] Loc: DI Ordering Provider: Georgia Joyce M.D. Status: REG CLI Primary Care Provider: Georgia Joyce M.D. Date of Exam: 03/31/19 Sex: F Admission Date: 03/31/19 : 1955 Age: 63 Exam(s) a US:US carotid SYMPTOM/DIAGNOSIS; CAD i 77.9 CAROTID ULTRASOUND: No significant plaque is visualized. The velocity measurements obtained are within the normal range. The vertebral arteries show antegrade flow. IMPRESSION: negative carotid ultrasound. No significant visible plaque or evidence of internal carotid artery stenosis. Ordered By: Georgia Joyce M.D. CC: Dictated By: Sarahi Bravo M.D. 03/31/19 1135 <Electronically signed by Sarahi Bravo M.D.> 03/31/19 1330 Transcribed By: Kami Mustafa 03/31/19 1234 This is privileged, confidential information intended only for the provider named. Any use or distribution by any person other than this provider is strictly prohibited. If you receive this report in error, please notify us immediately at [phone] and return the original report to us at the address above. Thank-you. Anesthesia Assessment and Plan Anesthesia History Personal History: No History of Anesthesia Complications Family History: No Family History of Anesthesia Complications Exercise Tolerance Exercise Tolerance: Metabolic Equivalents>4 Pertinent Negatives Pertinent Negatives: No Symptoms of GERD and No Major Pulmonary Symptoms or Complaints Cardiac & Pulmonary Exam Cardiac Exam: Normal S1/S2 Heart Sounds Pulmonary Exam: Clear Bilateral Breath Sounds Implantable Cardiac Device Does patient have a Pacemaker or an ICD?: No Airway Exam Known Difficult Airway: No Mallampati Class: 2 Mouth Opening: Normal (> 3cm) Thyromental Distance: Greater than 3 cm Neck Range of Motion: Full ROM Neck Circumference: Normal Teeth Condition: Normal Dentition and Generalized Poor Dentition ASA Classification ASA Score: ASA 2 Emergency Case?: No NPO Status NPO Status: NPO Clears >2 hours, Solids >8 hours Anesthesia Plan Resuscitation Status: Full Code Anesthesia Technique: General Anesthesia Airway Planned: Endotracheal Tube Pain Management: Surgeon and patient request nerve block Monitors Used: Standard Monitors Preoperative Comments:: Significant symptomatic lumbar disease despite neurosurgical intervention: discussed at length with the patient and decision to proceed with bilateral adductor canal blocks and a GETA.
[2024-01-07] MEDS: ceFAZolin 2 GM/50 ML BAG IVPB (10:14)
[2024-01-07] MEDS: TRANEXAMIC ACID/SOD. CHL. 1,000 MG/100 ML BAG 600 MG IVPB ×2 (10:27→11:33)
--- NOTE | 2024-01-07 10:52 | W.ANESNERVE ---
Nerve Block Single Injection Procedure Date and Time Date Performed: 01/07/24 Procedure Start: 09:44 Location Where Procedure Performed Procedure Location: Day Surgery Unit Reason Performed: Postoperative Analgesia Requesting Provider: Elder Ramires Timeout Performed Timeout Performed: Yes Monitoring Used ECG, Blood Pressure and SpO2 Sterility Sterility: Hand Hygiene, Surgical Cap, Surgical Mask, Sterile Gloves and Chlorhexidine Sedation Given During Procedure Sedation Given (Indicate Dose Given): No Sedation given Patient Mental Status Patient Mental Status: Awake Nerve Block 1st Nerve Block: Laterality: Bilateral Block Type: Adductor Canal Ultrasound Image Saved?: Yes Needle / Catheter Used: 100mm SonoPlex II Local Anesthetic Bolus (Indicate Dose Given): Lidocaine used for local infiltration of skin, Injected in 3-5ml increments after negative blood aspiration, Half of Total block solution given into each side and Bupivacaine 0.25% Dose:: 30 ml Additives (Indicate Dose Given): Normal Saline (hydrodissection) Ultrasound: Sterile probe cover and gel used Nerve Stimulator: Not Used Paresthesia: None Procedure Tolerated: No Complications and Patient tolerated well Procedure Outcome: Successful Performed By: Juan Francisco Eduardo
--- NOTE | 2024-01-07 12:48 | ROE_ITS ---
Date of service: 01/07/24 Time of Service: 10:30 Operative Note Operative Note DATE OF PROCEDURE: 01/07/24 PRE-OP DIAGNOSIS: Bilateral Knee Arthritis POST-OP DIAGNOSIS: same PROCEDURE: Bilateral Knee Arthroplasty SURGEON: Elder Ramires FRONT DESK MANAGER: Masood Fernandes ANESTHESIA TYPE: Spinal Refer to Anesthesia Record ESTIMATED BLOOD LOSS: 300 PATHOLOGY: none sent COMPLICATIONS: None Patient was transported to: PACU Patient's condition: stable Implants: LEFT: 1. Depuy Attune Cementless Cruciate Retaining Femoral Component, Size 5 2. Depuy Attune Cementless Fixed Bearing Tibial Component, Size 4 3. Depuy Attune 5x6 CR/FB Poly 4. Depuy Attune Patellar Component, Size 32 RIGHT: 1. Depuy Attune Cementless Cruciate Retaining Femoral Component, Size 5 2. Depuy Attune Cementless Fixed Bearing Tibial Component, Size 4 3. Depuy Attune 5x5 CR/FB Poly 4. Depuy Attune Patellar Component, Size 35 Indications: I have seen Molly in clinic for symptoms of knee arthritis, confirmed with radiographic findings. She has exhausted nonoperative methods and was having significant limitations in daily function and desired better function and less pain. I discussed the technical details of a knee replacement. I explained the risks of the procedure to include, but not limited to, bleeding, infection, pain, stiffness, fracture, damage to nerves and vessels, damage to muscles and tendons, loosening, need for repeat procedure, blood clot and cardiopulmonary demise. Despite these risks, Molly elected to proceed. Findings: There was significant arthritis throughout both knees. Procedure Description: Molly was greeted in the preoperative holding area where the correct side was identified and marked. The consent was reviewed with the patient and signed. The history and physical was updated. All questions were answered. Preoperative medications were administered: Acetaminophen 1000mg, Celebrex 400mg, and Gabapentin 300mg. An adductor canal block was then administered by the anesthesia team in the [facility]. Molly was taken back to the operating room. A general anesthestic was then administered. The patient was placed into the supine position on the operating room table. A nonsterile tourniquet was placed high onto the leg but only used for cementing. Posts were placed for positioning during the procedure. All bony prominences were well padded. Prophylactic antibiotics in the form of Cefazolin were administered. 1g of Tranxemic Acid was given intravenously within 30 minutes of incision. The left leg was then prepped with Chloraprep and draped in a standard fashion with impervious stockinette. A second prep with Chloraprep was performed prior to application of Iodine impregnated skin protection. A timeout to confirm correct identity, side and site, procedure, allergies, anesthesia, and medical concerns was performed. LEFT KNEE: With the knee in some flexion, a midline incision was made overlying the knee. Full thickness skin flaps were raised once the extensor mechanism was encountered. These were raised medially and laterally. Any bleeding was controlled with electrocautery. Once the extensor mechanism was fully exposed, a medial parapatellar arthrotomy was performed in a flexed position. All bleeding from the arthrotomy and the geniculate arteries was coagulated. A medial subperiosteal peel was performed with electrocautery to the midcoronal plane. The fat pad was removed while keeping the patellar tendon protected. The anterior distal femur synovium was removed for later visualization. The ACL and PCL were resected and the anterior horn of the lateral meniscus was transected. The knee was then flexed with the patella everted. Using a step drill, and based on preoperative templating, the femoral canal was entered. This was done with a step drill without any difficulty. The intramedullary distal femoral cut guide was inserted, set to a 6 degree valgus cut and 9mm cut thickness. The distal femoral cut guide was then held in position and pinned. With the soft tissues protected, the distal cut was performed. This was passed over a few times to ensure a planar cut. I then turned attention to the tibia. The extramedullary guide was placed onto the leg. The distal aspect was slid medial to adjust for position of center of ankle and stay in line with shaft of the tibia. Approximately 5 degrees of posterior slope was kept in the proximal cutting guide. The center of the guide was aligned with the PCL. The stylus was used to assess cut thickness. The medial side, most involved side, was set for a 5mm cut. This was then held in position and pinned into place with 2 additional pins and a cross pin for stability. The medial and lateral collateral ligaments were protected and the cut was performed. With this completed, it was assessed and noted to be of appropriate dimensions. The guide was removed. A spacer block was inserted and the knee was brought into extension. The 6mm spacer block provided full extension, without hyperextension and with stability of both the medial and lateral collateral ligaments was assessed. The pins from the femur and the tibia were then removed. The distal femur was then sized. The anterior stylus was placed onto the lateral ridge of the anterior femur. This indicated a size 5 femur. The external rotation of the guide was adjusted to 3 degrees to match the epicondylar axis, perpendicular to Waterfall?s line. The 4-in-1 cutting guide was the placed. The posterior medial femur cut was evaluated and appeared of good thickness. The spacer block was inserted underneath the cutting guide and stability was confirmed in 90 degrees of flexion. An abigail wing was used to confirm appropriate position of the anterior cut to avoid notching. This cutting guide was ensured to be flush on the cut surface and then pinned into place with headed pins. While protecting the soft tissues, quad tendon, and collateral ligaments, the anterior and posterior cuts were performed with a saw. The central two pins were removed and the posterior and anterior chamfers were cut next. The notch-cutting guide was placed. This was pinned to lateralize the femoral component as much as possible while keeping it flush on the cut surface. This was then pinned into position. A reciprocating saw was used to make the notch cut. A rasp smoothed the cut surfaces. The medial and lateral menisci were removed. A trial femoral component was then inserted, impacted down to the cut surfaces, and the lug holes were drilled. A provisional trial tibial component was placed and the knee was brought through range of motion. There was noted to be excellent extension and flexion. There was no significant instability. The patella was tracking without thumbs. A size 6mm polyethylene component provided the best range of motion and stability with less than 2mm gapping with medial and lateral stress and full extension without significant hyperextension. The tibial cut surface was fully exposed. The tibia was then sized as a 4. The tibia had been previously marked during trialing to correspond to the center of the tibial component to help with rotation. The trial was aligned to this masood, approximately rotated to the medial 1/3rd of the tibial tubercle. The trial was pinned into place. The tibia was prepared with a reamer and a keel punch and lug holes. The knee was then brought into extension and the patella was measured as 23mm. Using the patellar clamp and cut guide, this was resected to a flat surface with at least 13mm of thickness remaining. The size 32 patella fit the best. This was oriented and then clamped into position. The lugs were drilled. The trial components were removed. The final components were opened on the back table. The periosteal and capsular tissues, especially posteriorly, around the knee were then systematically injected with a periarticular cocktail consisting of 246mg of Ropivacaine, 0.5mg of Epinephrine, 0.08mg of Clonidine, and 30mg of Ketorolac, diluted to 100cc. On the back table, with the implants opened, the cement was mixed. One batch of high viscosity cement was prepared with vacuum assistance. After the cement was ready a small amount was placed on the cut surface of the patella and the patellar button was clamped into position and held. While the cement was hardening, the cementless knee components were placed. Starting with the tibial component, the tibia was subluxed anteriorly and the lug holes of the component were lined up. The tibia was then impacted with an impactor and mallet until the tibial component was in contact with the tibia. The final polyethylene component was inserted. Then, the femoral component was inserted. The lug holes were aligned and the component was impacted into position. The knee was irrigated with Surgiphor Betadine solution. This was allowed to sit in the knee for 3 minutes and then it was irrigated out with saline. After the cement had finally cured, approximately 15min, the clamp was removed from the patella and the knee was taken through range of motion. The patella was tracking with a no-thumbs technique. The capsule was then reapproximated with a No. 1 Vicryl at multiple locations. The capsule was finally closed with a No. 2 Stratafix, barbed suture. The second dosing of 1g TXA was started. Deep tissues were then reapproximated with 0 Vicryl and 2-0 Vicryl. The skin was closed with a running 3-0 Monocryl in a subcuticular fashion. Attention was then turned to the right knee and the left knee was covered with a sterile towel. RIGHT KNEE: With the knee in some flexion, a midline incision was made overlying the knee. Full thickness skin flaps were raised once the extensor mechanism was encountered. These were raised medially and laterally. Any bleeding was controlled with electrocautery. Once the extensor mechanism was fully exposed, a medial parapatellar arthrotomy was performed in a flexed position. All bleeding from the arthrotomy and the geniculate arteries was coagulated. A medial subperiosteal peel was performed with electrocautery to the midcoronal plane. The fat pad was removed while keeping the patellar tendon protected. The anterior distal femur synovium was removed for later visualization. The ACL and PCL were resected and the anterior horn of the lateral meniscus was transected. The knee was then flexed with the patella everted. Using a step drill, and based on preoperative templating, the femoral canal was entered. This was done with a step drill without any difficulty. The intramedullary distal femoral cut guide was inserted, set to a 6 degree valgus cut and 9mm cut thickness. The distal femoral cut guide was then held in position and pinned. With the soft tissues protected, the distal cut was performed. This was passed over a few times to ensure a planar cut. I then turned attention to the tibia. The extramedullary guide was placed onto the leg. The distal aspect was slid medial to adjust for position of center of ankle and stay in line with shaft of the tibia. Approximately 3-5 degrees of posterior slope was kept in the proximal cutting guide. The center of the guide was aligned with the PCL. The stylus was used to assess cut thickness. The medial side, most involved side, was set for a 4mm cut. This was then held in position and pinned into place with 2 additional pins and a cross pin for stability. The medial and lateral c ollateral ligaments were protected and the cut was performed. With this completed, it was assessed and noted to be of appropriate dimensions. The guide was removed. A spacer block was inserted and the knee was brought into extension. The 5mm spacer block provided full extension, without hyperextension and with stability of both the medial and lateral collateral ligaments was assessed. The pins from the femur and the tibia were then removed. The distal femur was then sized. The anterior stylus was placed onto the lateral ridge of the anterior femur. This indicated a size 5 femur. The e xternal rotation of the guide was adjusted to 3 degrees to match the epicondylar axis, perpendicular to Waterfall?s line. The 4-in-1 cutting guide was the placed. The posterior medial femur cut was evaluated and appeared of good thickness. The spacer block was inserted underneath the cutting guide and stability was confirmed in 90 degrees of flexion. An abigail wing was used to confirm appropriate position of the anterior cut to avoid notching. This cutting guide was ensured to be flush on the cut surface and then pinned into place with headed pins. While protecting the soft tissues, quad tendon, and collateral ligaments, the anterior and posterior cuts were performed with a saw. The central two pins were removed and the posterior and anterior chamfers were cut next. The notch-cutting guide was placed. This was pinned to lateralize the femoral component as much as possible while keeping it flush on the cut surface. This was then pinned into position. A reciprocating saw was used to make the notch cut. A rasp smoothed the cut surfaces. The medial and lateral menisci were removed. A trial femoral component was then inserted, impacted down to the cut surfaces, and the lug holes were drilled. A provisional trial tibial component was placed and the knee was brought through range of motion. There was noted to be excellent extension and flexion. There was no significant instability. The patella was tracking without thumbs. A size 5mm polyethylene component provided the best range of motion and stability with less than 2mm gapping with medial and lateral stress and full extension without significant hyperextension. The tibial cut surface was fully exposed. The tibia was then sized as a 4. The tibia had been previously marked during trialing to correspond to the center of the tibial component to help with rotation. The trial was aligned to this masood, approximately rotated to the medial 1/3rd of the tibial tubercle. The trial was pinned into place. The tibia was prepared with a reamer and a keel punch and lug holes. The knee was then brought into extension and the patella was measured as 23mm. Using the patellar clamp and cut guide, this was resected to a flat surface with at least 13mm of thickness remaining. The size 35 patella fit the best. This was oriented and then clamped into position. The lugs were drilled. The trial components were removed. The final components were opened on the back table. The periosteal and capsular tissues, especially posteriorly, around the knee were then systematically injected with a periarticular cocktail consisting of 246mg of Ropivacaine, 0.5mg of Epinephrine, 0.08mg of Clonidine, and 30mg of Ketorolac, diluted to 100cc. On the back table, with the implants opened, the cement was mixed. One batch of high viscosity cement was prepared with vacuum assistance. After the cement was ready a small amount was placed on the cut surface of the patella and the patellar button was clamped into position and held. While the cement was hardening, the cementless knee components were placed. Starting with the tibial component, the tibia was subluxed anteriorly and the lug holes of the component were lined up. The tibia was then impacted with an impactor and mallet until the tibial component was in contact with the tibia. The final polyethylene component was inserted. Then, the femoral component was inserted. The lug holes were aligned and the component was impacted into position. The knee was irrigated with Surgiphor Betadine solution. This was allowed to sit in the knee for 3 minutes and then it was irrigated out with saline. After the cement had finally cured, approximately 15min, the clamp was removed from the patella and the knee was taken through range of motion. The patella was tracking with a no-thumbs technique. The capsule was then reapproximated with a No. 1 Vicryl at multiple locations. The capsule was finally closed with a No. 2 Stratafix, barbed suture. Deep tissues were then reapproximated with 0 Vicryl and 2-0 Vicryl. The skin was closed with a running 3-0 Monocryl in a subcuticular fashion. Both incisions were then reinforced with skin glue. A Mepilex silver dressing was applied along with a [id number] ROSANNA wrap to both knees. A CryoCuff was applied. Molly was transferred to the hospital bed without difficulty an suffering no apparent complication. Molly has a good prognosis. Physical therapy will start today and without restrictions, weight-bearing as tolerated. Aspirin 81mg BID will be used for DVT prophylaxis.
--- NOTE | 2024-01-07 13:30 | W.ANESPOSTOP ---
Postoperative Evaluation Date, Time and Location Date Performed: 01/07/24 Time Performed: 13:30 Patient Location: PACU Vital Signs Most Recent Imported Vital Signs: Most Recent Vital Signs Temp Pulse Resp BP Pulse Ox 36.4 C L 98 H 11 L 96/58 L 96 01/07/24 13:15 01/07/24 13:15 01/07/24 13:15 01/07/24 13:15 01/07/24 13:15 Pain Score Most Recent Pain Score: Most Recent Pain Score Pain Level 0 01/07/24 13:15 Assessment Mental Status: Awake (Alert & Oriented to Patient Baseline) Airway and Respiratory Function: Patent airway with normal (patient baseline) respiratory exam Cardiovascular Function: Hemodynamically Stable Hydration Status: Adequately Hydrated Nausea & Vomiting: No Nausea or Vomiting Pain: Pain is tolerable per patient Peripheral Nerve Block: Patient did not receive a nerve block
--- NOTE | 2024-01-07 15:29 | IN_ITS ---
PT Notes Visit Reasons: Bilateral knee arthritis Physical Therapy Inpatient Initial Evaluation Date: 01/07/2024 Referring Doctor: Elder Polk MD PT Orders: PT CONSULT: S/P Ortho Surgery. S/P bilateral TKA. Precautions: Fall. Standard. WBAT on B LE with AD. Patient Profile/Admitting Diagnosis: Patient is a 68-year-old female with bilateral primary osteoarthritis of knees S/P bilateral total knee arthroplasties on postoperative day 0. PMHX: Medical History Rotator cuff tear Nephrolithiasis Diverticulosis of colon History of peptic ulcer HPV in female Palpitations Onychomycosis of toenail Lower back pain Migraine Lumbar radiculitis Rupture of right biceps tendon Lumbar radiculopathy, right Thoracic back pain Shingles NSAID long-term use Carotid arterial disease GERD (gastroesophageal reflux disease) Situational depression Acute diarrhea IBS (irritable bowel syndrome) UTI (urinary tract infection) Encounter for medication monitoring Abdominal pain Frequent loose stools Flushing Colitis Eustachian tube dysfunction Enteritis History of mammogram Muscle spasm Osteopenia Lesion of skin of nose Dry eye Skin lesions Arthritis Anxiety disorder Chronic pain Insomnia Surgical History History of lumbar fusion section Open Carpal Tunnel release R Colonoscopy - MAC (11/25/17) Appendectomy Social History/Home Situation: Lives with in a private home. Independent with all aspects of ADLs without device although had been having increasing difficulty with mobility performance. Has fallen 1 time in the past year. Equipment Owned/DME: None Subjective: wanted to use the commode urgently when PT came in. Complained of pain in B knees, R more affected of up to 7-8/10 with walking. Reported lightheadedness that resolved with seated rest. Denied headache and chest pain throughout. Happy that she is able to bnd both knees okay to sit up at edge of bed. Objective: General Observation: Resting in bed. Cryocuff to B knees. TEDS to B LEs. IV through L UE. Mental Status: Alert and oriented as to person, place, time, and purpose. Able to pay attention, focus, and respond appropriately. Pain: As above Vital Signs: BP softened to 84/60s mmHg after a short in-room walk with oxygen low of 85% on room air but resaturated back to 93% with rest; HR high of 118 bpm and low of 75 bpm ROM: Right Lower Extremity: Hip flexion WFL. Hip abduction WFL. Knee flexion 30 degrees to 90 degrees. Knee extension -30 degrees. Ankle dorsiflexion WFL. Ankle plantarflexion WFL. Left Lower Extremity: Hip flexion WFL. Hip abduction WFL. Knee flexion 20 degrees to 90 degrees. Knee extension -20 degrees. Ankle dorsiflexion WFL. Ankle plantarflexion WFL. Strength: Right Lower Extremity: Hip flexors 4-/5. Hip abductors 4-/5. Knee flexors 3-/5. Knee extensors 3-/5. Ankle dorsiflexors 4-/5. Ankle plantarflexors 4-/5. Left Lower Extremity: Hip flexors 4-/5. Hip abductors 4-/5. Knee flexors 3-/5. Knee extensors 3-/5. Ankle dorsiflexors 4-/5. Ankle plantarflexors 4-/5. Bed Mobility/Transfers: Minimal cueing provided for use of B hands as needed for support, movement sequence, AD management, and posture to reduce fall risk and minimize pain report Rolling contact guard assist Supine to sit minimal assist Sit to supine sit minimal assist Sit to stand minimal assist of 2 Stand to sit minimal assist of 2 Bed to bedside commode minimal assist of 2 Bedside commode to bedside chair minimal assist of 2 Gait: 4 steps from bedside to bedside commode using FWW with minimal assist of 2, moderate assist of 2 to walk 6 steps from commode using FWW. Pain level high at each weight acceptance in B LE despite walker use. Gait severely antalgic. Wheelchair follow provided. Became lightheaded at end of short walk necessitating seated rest, BP softened to 80s/60s mmHg. Nurse Davey made aware. Balance: Static Sitting: Fair Dynamic Sitting: Fair Static Standing: Poor Dynamic Standing: Poor Special Tests: Mobility Limitations Standardized Measure [facility] AM-PAC 6 clicks Basic Mobility Inpatient Short Form: Raw Score: 13 CMS Score: 65% deficit Informed Consent/Education: Patient was instructed in purpose of PT consult and plan of care. Agreeable to proceed with established PT POC to achieve personal goals. ASSESSMENT: Pain level limited today's assessment. Will ensure that coordination is made with nurse prior to succeeding PT visits for pre-medication for pain. Patient tends to be impulsive which can be a safety issue. Patient presents with cl inical signs and symptoms consistent with current/admitting diagnoses that have resulted to mobility limitations, gait instability, generalized weakness, and overall ADL decline as demonstrated by the following impairment level findings: 1. Decreased strength to B hip and knee major muscle groups 2. Impaired standing balance 3. Impaired activity tolerance 4. Limitation of joint range of motion in B knees 5. Post op pain in B knees 6. Lightheadedness Impairments are contributing to the following functional limitations: 1. Decline in bed mobility skills 2. Decline in transfer skills 3. Difficulty with ambulation without assistive device and physical assistance 4. Increased completion time for mobility ADL performance 5. Increased risk for falls 6. Difficulty with managing steps alone safely Patient is assessed as a 04399 moderate complexity based on the following: History: 68-year-old female with past medical history as indicated above Examination: Demonstrable impairment in strength, balance, and mobility level with underlying impairments and functional limitations as exhibited above as well as deficit score of 65% utilizing the [facility] Mobility Inpatient Short Form Presentation: Evolving Decision Makin high complexity Goals: Goals X1 week 1. Supine-Sit independent 2. Sit-Supine independent 3. Sit-Stand independent 4. Stand-Sit independent with FWW 5. Bed-Chair independent with FWW 6. Chair-Bed independent with FWW 7. Independent gait on level surface with use of FWW for at least 300 feet without report of pain nor dyspnea 8. Independent stair negotiation while holding onto B rails for at least 5 steps without report of pain nor dyspnea 9. Independent with home exercise program 10. Good static and dynamic standing balance/tolerance Plan of Care/Treatment Plan: 1-2x/day, 7 days/week x 1 week. Plan of care has been reviewed with the END LATHE OPERATOR providing the service under Physical Therapy direction. Initiate Physical Therapy intervention for pain management as needed, strengthening, bed mobility, transfers, gait, stairs, balance training, and use of assistive device. DISCHARGE RECOMMENDATIONS: [] Home with no services [] [] Home with services [specify] [] Home with outpatient PT [] [] SNF for continued rehabilitation [] [] [facility] [] [] SNF versus LTC based on ability to participate and progress [] [X] PT vs short-term rehab based on progress towards goals TREATMENT CODE/TIME: 07695 x 20 minutes for 1 unit, 30071 x 18 minutes for 1 unit (14:40-15:18). Thank you for the opportunity to participate in the care of this patient. Katherine Bush PT, DPT, CLT [facility] [place], [place]
[2024-01-07] MEDS: ceFAZolin 1 GM/50 ML BAG IVPB ×2 (15:38→23:16)
[2024-01-07] MEDS: oxyCODONE 5 MG TAB PO ×3 (16:21→23:15)
[2024-01-07] MEDS: Aspirin E.C. 81 MG TABEC PO (20:18)
[2024-01-07] MEDS: Celecoxib 200 MG CAP PO (20:20)
[2024-01-07] MEDS: Gabapentin 300 MG CAP PO (20:20)
[2024-01-07] MEDS: traZODone 50 MG TAB 150 MG PO (20:21)
[2024-01-08] MEDS: oxyCODONE 5 MG TAB PO ×4 (02:22→13:23)
[2024-01-08 02:37] VITALS: BP 99/67; PULSE 97; RESP 18; O2SAT 95
[2024-01-08] MEDS: Lactated Ringers 1,000 ML 80 ML IV (05:12)
[2024-01-08 07:57] VITALS: BP 98/61; PULSE 99; RESP 18; TEMP 36.4; O2SAT 94
[2024-01-08 08:08] VITALS: O2SAT 93
[2024-01-08] MEDS: Ascorbic Acid 500 MG TAB 2000 MG PO (08:15)
[2024-01-08] MEDS: Escitalopram 10 MG TAB PO (08:16)
[2024-01-08] MEDS: Acetaminophen 500 MG TAB 1000 MG PO ×2 (08:16→14:35)
[2024-01-08] MEDS: Aspirin E.C. 81 MG TABEC PO (08:16)
[2024-01-08] MEDS: Celecoxib 200 MG CAP PO (08:16)
[2024-01-08] MEDS: ceFAZolin 1 GM/50 ML BAG IVPB (08:16)
[2024-01-08] MEDS: Omeprazole 20 MG CAPCR PO (08:16)
[2024-01-08] MEDS: Magnesium Oxide 400 MG TAB PO (08:16)
[2024-01-08] MEDS: Dexamethasone 4 MG TAB PO (08:16)
--- NOTE | 2024-01-08 09:00 | PTTR_ITS ---
PT Notes Visit Reasons: Bilateral knee arthritis Date: 01/08/2024 PRECAUTIONS: Fall. Standard. WBAT on B LE with AD. SUBJECTIVE: Pt in recliner when approached for therapy this morning, pt reports she is in a lot of pain (bilateral knee 07/09) agreed to participating with therapy after she takes her pain meds, Nurse Marie updated of pt request and administered pain meds. OBJECTIVE: IV line left antecubital, Cryocuff on bilateral knee, Sequential compression device on bilateral LE. ? PAIN: 07/09, 03/09 post pain med VITALS: closely monitored by nursing. Therapeutic Activities [id number]: Direct one-on-one instruction in dynamic activities to improve functional performance. ?? BED MOBILITY/TRANSFERS? Rolling L/R: SBA Supine-sit: ?SBA? Sit-supine: ? SBA? Sit-stand: ? SBA ? Stand-sit: ?SBA? Bed-Chair:? ?SBA ? Chair-bed: SBA Provided skilled cues and instruction on performance and technique throughout. Gait Training [id number]: Direct one-on-one instruction and skilled instruction in: Employing an assistive device Modified weight-bearing status Movement sequencing Turning and movement with proper form Provided verbal cues for equipment management and technique Provided instruction in gait pattern Patient education regarding pacing and breathing techniques to maximize activity tolerance? GAIT? Assistive Device: ??FWW ? Weight bearing: WBAT Assist: ? CGA? Distance:??60' 1st, 200'2nd ? Deviation: ?Antalgic gait? ? Stairs: ?Step through gait pattern, bilateral hand rail, 6steps going up/6steps going down 6 steps SBA on going up/CGA on going down ? Therapeutic Exercises [id number]: Direct one-on-one instruction in therapeutic exercises to develop strength, endurance, range of motion and flexibility. Exercises Access Code: [email or web address] URL: [email or web address] Date: 01/08/2024 Prepared by: Judah Bush Exercises - Supine Quadricep Sets - 1 x daily - 7 x weekly - 1 sets - 10 reps - 5 hold - Supine Heel Slide - 1 x daily - 7 x weekly - 1 sets - 10 reps - 5 hold - Supine Ankle Pumps - 1 x daily - 7 x weekly - 1 sets - 10 reps - 5 hold - Small Range Straight Leg Raise - 1 x daily - 7 x weekly - 1 sets - 10 reps - 5 hold - Seated March - 1 x daily - 7 x weekly - 1 sets - 10 reps - 5 hold ? Provided skilled instruction in proper exercise performance Provided skilled manual cues to facilitate proper muscle recruitment and/or form: ASSESSMENT:?Pt tolerated activity well, pain did not escalate, able to perform HEP with good execution. PLAN: Continue with balance training, global strengthening and general conditioning for improved safety, mobility and activity tolerance until pt is ready for DC. TREATMENT CODE/TIME: [id number], [id number], [id number] 45mins (8:50-9:05am, 9:30- 10:00am)
--- NOTE | 2024-01-08 09:25 | INITIAL_ITS ---
Date of service: 01/08/24 Time of Service: 09:25 Care Management Initial Assmt Initial Assessment REASON FOR HOSPITALIZATION:: Bilateral Knee Arthroplasty PREVIOUS FUNCTIONAL STATUS/SOCIAL/FAMILY SUPPORTS:: Molly is retired and lives in [facility] with her . Her daughter Aria lives upstairs and her son Esau lives next door. Her sister lives nearby and is also very supportive. Molly drives and manages all functions of her ADLs/IADLs at baseline. Molly denies any social or economic needs. CURRENT FUNCTIONAL STATUS:: Molly was laying down with her HOB elevated, visiting with her sister when CM met with her. She is awake and easily engages in conversation. Molly is very upbeat and is very happy with the care she has received during her admission. CM provided her with a [employer] after she discussed a few of the nurse interactions last night. ADVANCE DIRECTIVES:: None on file, Molly is aware of option to fill out ADV. Directives, she declines and notes that she has 3 forms at home to fill out. Has patient been provided with info about the portal/API?: Yes Did the patient sign up for the portal?: No CODE STATUS:: Full Code INSURANCE COVERAGE / FINANCIAL ISSUES:: BC BS of [place] Medicare CURRENT HOME/COMMUNITY SERVICES/EQUIPMENT:: None PRIMARY CARE PHYSICIAN:: Georgia Correa POTENTIAL DISCHARGE NEEDS:: Follow up with Ortho, Evaluations for further needs, Cane PATIENT/FAMILY EDUCATION NEEDS:: Review discharge instructions, limitations, medications and plan to follow up with community providers. Discuss ask me three. ANTICIPATED BARRIERS TO DISCHARGE:: None identified TRANSPORTATION:: Via private vehicle with daughter PLAN:: Anticipate, Molly will discharge home when medically cleared by Ortho provider. Pt will follow discharge instructions and plan of care as instructed. New [facility] PT is recommended. Transport home will be provided by daughter Aria. Evaluations for further needs will continue, CM will follow. PFSH All Active Problems History of total bilateral knee replacement (Acute ~01/07/24) Actinic keratosis (Acute) Carotid arterial disease (Acute) Screening for malignant neoplasm of cervix (Acute) Medical History Rotator cuff tear Nephrolithiasis Diverticulosis of colon History of peptic ulcer HPV in female Palpitations Onychomycosis of toenail Lower back pain Migraine Lumbar radiculitis Rupture of right biceps tendon Lumbar radiculopathy, right Thoracic back pain Shingles NSAID long-term use GERD (gastroesophageal reflux disease) Situational depression Acute diarrhea IBS (irritable bowel syndrome) UTI (urinary tract infection) Encounter for medication monitoring Abdominal pain Frequent loose stools Flushing Colitis Eustachian tube dysfunction Enteritis History of mammogram Muscle spasm Osteopenia Lesion of skin of nose Dry eye Skin lesions Arthritis Anxiety disorder Chronic pain Insomnia Surgical History Hx of arthroscopic knee surgery History of bunionectomy History of lumbar fusion section x Open Carpal Tunnel release R Colonoscopy - MAC (11/25/17) Appendectomy Social History Smoking/Tobacco Use Status: Former Tobacco Use Quit Date: 09/30/85 Smoking risk assessment performed?: Yes Alcohol Intake: current Alcohol Intake frequency: a few times a month Alcohol type: wine Drug use: Never Substance use type: does not use Housing: house Do you feel safe at home: Yes Do you feel safe in your relationship?: Yes SDOH(Care Management) Screening Will the Patient Participate in the Screening?: Yes Do you worry about having a steady place to live?: no Problems where you live: no known problems In the past 12 months, have you had to go without electric, gas, oil or water in your home?: no Have you or anyone in your house had to go without enough food to eat?: no Has lack of transportation kept you from medical appointments or from doing things needed for daily living?: no Has anyone in your support network made you feel unsafe for any reason?: no
--- NOTE | 2024-01-08 10:44 | W.PM.DS.N ---
Date of service: 01/08/24 Time of Service: 10:44 DS: Diagnosis Discharge Diagnosis (1) History of total bilateral knee replacement: Status: Acute Discharge Plan Disposition Patient Disposition: Home Condition: Good Discharge Details Reason For Visit: Bilateral knee arthritis Admit Date/Time: 01/07/24 12:54 Admit Provider: Elder Ramires Attending Provider: Elder Ramires Primary Care Provider: Georgia Correa V Hospital Course Hospital Course: Molly was admitted to the medical/surgical floor following the procedure. The surgery was tolerated well without any notable medical, surgical, or anesthetic complications. Mobilization began postoperatively. She was voiding spontaneously. Vitals were stable. Physical therapy worked with the patient and was cleared for discharge home. No acute medical issues. Pain was controlled on oral regimen. Home Meds and New Rx's Prescriptions: New aspirin 81 mg tablet,delayed release (DR/EC) 81 mg PO BID Qty: 60 0RF acetaminophen 500 mg tablet 1,000 mg PO Q8H PRN (Reason: pain) Qty: 90 3RF dexamethasone 4 mg tablet 4 mg PO DAILY Qty: 2 0RF Rx Instructions: Starting Post-Operative Day #1 (Day after surgery) gabapentin 300 mg capsule 300 mg PO QHS Qty: 14 0RF oxycodone 10 mg tablet 10 mg PO Q4H PRNQty: 18 0RF Continued duloxetine [Cymbalta] 20 mg capsule,delayed release(DR/EC) 20 mg PO BID Hold Instructions: Prescription Finished ascorbic acid (vitamin C) 1,000 mg tablet extended release 2,000 mg PO DAILY magnesium 200 mg tablet 400 mg PO DAILY escitalopram oxalate [Lexapro] 10 MG tablet 10 mg PO DAILY trazodone 150 MG tablet 150 mg PO QPM omeprazole 20 MG capsule,delayed release(DR/EC) 20 mg PO DAILY cyclobenzaprine 10 MG tablet 10 mg PO TID PRN PRN Patient Comments: Patient states she has not taken this in a few weeks. Patient states she takes this as needed. rizatriptan [Maxalt] 10 MG tablet 10 mg PO DIRECTED Patient Comments: last week celecoxib 200 mg capsule 200 mg PO BID Qty: 60 2RF Rx Instructions: with a meal Discontinued acetaminophen [Tylenol Arthritis Pain] 650 MG tablet extended release 650 mg PO DAILY Hold Instructions: Adverse Reaction Discharge Instructions Additional Instructions: Total Knee Discharge Instructions Activity: The most important activity is to walk and to work on gentle motion (both flexion and extension). You should try to take short walks a few times a day. It is important that when resting you work on keeping the knee straight. Avoid putting a pillow behind the knee as this will encourage flexion. Work on range of motion exercises as provided by Physical Therapy. - Start outpatient physical therapy within 2 weeks. - You should wear the VIDYA hose on both legs for 2 weeks. You may remove these at night. You may also use any compression sock in place of the VIDYA hose. - Utilize [email or web address] to review exercises, see videos on exercises and obtain basic information pertaining to your surgery and your recovery. Dressing: Remove the Alok wrap by 2 days after your surgery and put on the VIDYA stocking given to you from the hospital. Keep the surgical dressing (underneath the ALOK wrap) in place for at least one week. After the first week it may be removed and replaced with light gauze and tape or nothing. The wound and dressing may get wet after 3 days but avoid soaking the dressing or otherwise it will need to be changed. Many people prefer covering the dressing with cling wrap (saran wrap) to minimize it from getting soaked. If it gets wet, just pat dry. If it starts to peel off then it will need to be changed. Medications: - You should take Tylenol and anti-inflammatory Celebrex as your primary pain control medications. If the Celebrex is too expensive or not covered, please call the office for another alternative (Advil/Ibuprofen or Naproxen/Aleve) - You have been prescribed a stronger pain medication Oxycodone for breakthrough pain, take as needed as prescribed. - You will continue to take your stomach acid reduction agent Omeprazole to help reduce stomach acid and reflux. - You have been prescribed Gabapentin to take at night for restlessness and nerve pain. - You will be taking Aspirin 81mg twice a day for DVT prevention unless instructed otherwise. - You have also been prescribed Decadron to take to control post-operative nausea and pain. You will start this tomorrow. - If you have constipation you should take Colace or Miralax (both [id number]). It takes most people 3-4 days to have a bowel movement. Follow-up: 2 weeks If you have any acute concerns or questions, please do not hesitate to contact the office at [phone]. You may contact Dr. Ramires with any questions after hours through the hospital at [phone] or on his cell phone at [phone]. Referrals: Elder Ramires MD [ [facility] STAFF PHYSICIAN] - 01/20/24 3:00 pm Activity:: Activity as Tolerated Equipment/Supplies:: Walker Diet:: As Tolerated Discharge Orders Discharge Orders: Discharge Order (Routine); Ordered 01/08/24 Ordered By: Elder Ramires DS: Summary Time Spent with Patient providing and/or coordinating discharge services: Less than 30 minutes Status at Discharge Functional status at discharge: uses cane/walker Overall status at discharge: patient is progressing back to baseline Mental Status: mental status grossly normal Speech and Movement: speech and movement normal Mood: congruent mood Affect: normal affect Quality:SDOH Health Related Social Needs: No Data to Display Exam Narrative Exam Narrative: Sitting up in the hospital bed. No acute distress. Alert and oriented x 3. Evaluation of both legs shows clean dry and intact dressings. He is able straight leg raise about both sides. She has intact sensation to the deep and superficial peroneal nerve and tibial nerve. Active ankle dorsiflexion plantarflexion as well as great toe extension and flexion. Capillary refill less than 2 seconds. Psych Mental Status: mental status grossly normal Speech and Movement: speech and movement normal Mood: congruent mood Affect: normal affect DS: Data Vitals/I&O Vitals and I&O: Vital Signs Temperature 36.4 C L 01/08/24 07:57 Temperature Source Tympanic 01/08/24 07:57 Pulse 99 H 01/08/24 07:57 Pulse Rhythm Regular 01/08/24 02:44 Pulse 92 H 01/07/24 10:01 Respiratory Rate 18 01/08/24 07:57 Respiratory Effort Normal 01/08/24 02:44 Respiratory Depth Normal 01/08/24 02:44 Respiratory Pattern Normal 01/08/24 02:44 Blood Pressure 98/61 L 01/08/24 07:57 Blood Pressure Mean 100 01/07/24 10:01 Blood Pressure Position Supine 01/07/24 09:15 Pulse Oximetry 93 01/08/24 08:08 Respiratory End-tidal CO2 30 01/07/24 13:45 Oxygen Delivery Method Room Air 01/08/24 08:08 Oxygen Flow Rate 0 01/08/24 08:08 Pain Level 8 01/08/24 07:57 Comment since ambulating to restroom. the patients oxygen remains 88% on 0.5 L nasal cannula 01/07/24 23:19 Intake & Output 01/07/24 01/07/24 01/08/24 11:59 23:59 11:59 Intake Total 250 / 9541.313 2246.333 / 6221.644 6874 / 1558 Balance 250 / 6869.138 0901.333 / 1811.089 8793 / 1558 Weight 79.1 kg Intake: IV 250 / 5180.504 3262.333 / 6137.975 6796 / 1308 Oral 250 / 250 Other: Urine Color Yellow Yellow Urine Appearance Clear Clear Urine Odor Normal Comment pt voided x1 with hand off. in commode. toilet paper soaked up alot of the urine. 1 unknown patients urine missed the toilet insert. she ambulated x1 assist up to the toilet. Emesis Description None Voiding Methods Toilet PFSH All Active Problems History of total bilateral knee replacement (Acute ~01/07/24) Actinic keratosis (Acute) Carotid arterial disease (Acute) Screening for malignant neoplasm of cervix (Acute) Medical History Rotator cuff tear Nephrolithiasis Diverticulosis of colon History of peptic ulcer HPV in female Palpitations Onychomycosis of toenail Lower back pain Migraine Lumbar radiculitis Rupture of right biceps tendon Lumbar radiculopathy, right Thoracic back pain Shingles NSAID long-term use GERD (gastroesophageal reflux disease) Situational depression Acute diarrhea IBS (irritable bowel syndrome) UTI (urinary tract infection) Encounter for medication monitoring Abdominal pain Frequent loose stools Flushing Colitis Eustachian tube dysfunction Enteritis History of mammogram Muscle spasm Osteopenia Lesion of skin of nose Dry eye Skin lesions Arthritis Anxiety disorder Chronic pain Insomnia Surgical History Hx of arthroscopic knee surgery History of bunionectomy History of lumbar fusion section x Open Carpal Tunnel release R Colonoscopy - MAC (11/25/17) Appendectomy Social History Smoking/Tobacco Use Status: Former Tobacco Use Quit Date: 09/30/85 Smoking risk assessment performed?: Yes Alcohol Intake: current Alcohol Intake frequency: a few times a month Alcohol type: wine Drug use: Never Substance use type: does not use Housing: house Do you feel safe at home: Yes Do you feel safe in your relationship?: Yes Time Spent with Patient Time Spent with Patient: <45 minutes Time was spent: preparing to see the patient(eg.review tests), obtaining and/or reviewing separately otained hiistory, indepentently interpreting results and counseling the patient
[2024-01-08 11:45] VITALS: BP 110/71; PULSE 105; RESP 18; TEMP 36.6; O2SAT 91
--- NOTE | 2024-01-08 14:33 | PDOC.CMDIS ---
Date of service: 01/08/24 Time of Service: 14:33 LACE Index Scoring Tool Questions: Length of Stay (in days): 1 Was the patient admitted via the E.D.?: No E.D. Visits: 1 Answers: Total Score: 2 Risk of Readmission: Low Risk Care Management Discharge Plan Reason for Hospitalization: Bilateral Knee Arthroplasty Discharge Plan: Molly is discharged home with a plan to follow up with Ortho and start outpatient PT in 2 weeks. Molly will follow up with community providers and her discharge plan of care as recommended. Daughter to provide transportation home. No [facility] services are ordered prior to discharge. Patient/Family Education Needs: Review discharge instructions, limitations, medications and plan to follow up with community providers. Discuss ask me three. SDOH Health Related Social Needs: No Data to Display
== END 2024-01-08 14:58 | disposition home or self-care (01) ==
LOC: MS 14:09
PROVIDERS: Admitting Provider Student in an Organized Health Care Education/Training Program; PCP Family Medicine; Visit Provider Student in an Organized Health Care Education/Training Program
PROC: 0SRC0JZ Replacement of Right Knee Joint with Synthetic Substitute, Open Approach (ICD-10-PCS; CPT 27447; principal; 2024-01-07 11:15)
DX: M17.0 Bilateral primary osteoarthritis of knee (principal); K57.30 Diverticulosis of large intestine without perforation or abscess without bleeding; G43.909 Migraine, unspecified, not intractable, without status migrainosus; M54.6 Pain in thoracic spine; K58.9 Irritable bowel syndrome, unspecified; K21.9 Gastro-esophageal reflux disease without esophagitis; I65.29 Occlusion and stenosis of unspecified carotid artery; B35.1 Tinea unguium; M54.16 Radiculopathy, lumbar region; Z79.1 Long term (current) use of non-steroidal anti-inflammatories (NSAID); Z87.11 Personal history of peptic ulcer disease; Z79.899 Other long term (current) drug therapy
CPT/HCPCS: 27447; C1776; 76942; 96365; 96366; 97110; 97116; 97162; 97530; 94760; G0378; J0665; J0690; J1100; J1171; J2371; J2405; J2704; J3475; J8540

== ENCOUNTER 2024-01-20 14:43 | Outpatient (CLI) | payer MEDICARE, BC, SELFPAY ==
--- NOTE | 2024-01-20 15:14 | DI.RAD_ITS ---
Exam(s) XR KNEE LT 1V XR KNEE RT 1V XR STANDING ALIGNMENT EXAM: XR STANDING ALIGNMENT and XR knee bilateral 1 V CLINICAL HISTORY: 1st post op S/P BILAT TKAs. TECHNIQUE: 2D digital imaging was performed. Six images were obtained. COMPARISON: CR XR KNEE LT 3V AP,LAT,VIC from 10/14/2023 CR XR KNEE RT 3V AP,LAT,VIC from 10/14/2023 CR XR STANDING ALIGNMENT from 12/27/2023 FINDINGS: BONES: The hips are well maintained. The patient now has bilateral total knee replacements. The ort hopedic hardware appears in good position. No suspicious lucencies are seen in or about the orthoped ic hardware. The ankles are well maintained.There is no significant leg length discrepancy. SOFT TISSUE: Normal. IMPRESSION: Satisfactory position of the bilateral total knee replacements. DATA REPOSITORY: RADIATION DOSE DELIVERED:
== END 2024-01-20 14:44 | disposition home or self-care (01) ==
LOC: DIORS 14:43
PROVIDERS: PCP Family Medicine; Referring Provider Family Medicine; Visit Provider Student in an Organized Health Care Education/Training Program
DX: Z96.653 Presence of artificial knee joint, bilateral (principal); Z47.1 Aftercare following joint replacement surgery
CPT/HCPCS: 73560; 77073

== ENCOUNTER → 2024-02-20 14:39 | Outpatient (BNVA) | payer MEDICARE, BC, SELFPAY | PROVIDERS: PCP Family Medicine; Referring Provider Family Medicine; Visit Provider Student in an Organized Health Care Education/Training Program | DX: Z47.1 Aftercare following joint replacement surgery (principal); S76.111A Strain of right quadriceps muscle, fascia and tendon, initial encounter; X58.XXXA Exposure to other specified factors, initial encounter; Z96.653 Presence of artificial knee joint, bilateral ==

== ENCOUNTER 2024-02-25 08:19 | Day surgery (SDC) | payer MEDICARE, BC, SELFPAY ==
[2024-02-25] VITALS (10 sets, daily range): BP systolic 106–149; BP diastolic 68–92; PULSE 94–103; RESP 12–20; TEMP 36–36.9; O2SAT 93–99; BMI 29.7
--- NOTE | 2024-02-25 07:37 | PDOC.DSDIS_ITS ---
Date of service: 02/25/24 Time of Service: 08:57 Discharge Plan Disposition Patient Disposition: Home Condition: Good Discharge Details Reason For Visit: Right quadriceps rupture status post right TKA Attending Provider: Elder Ramires Primary Care Provider: Georgia Correa V Home Meds and New Rx's Prescriptions: New aspirin 81 mg tablet,delayed release (DR/EC) 81 mg PO BID 30 Days Qty: 60 0RF oxycodone 5 mg tablet 5 mg PO Q4H PRNQty: 18 0RF Rx Instructions: Take one tablet up to every 4 hours as needed for severe postoperative pain Continued gabapentin 300 mg capsule 300 mg PO QHS Qty: 30 0RF duloxetine [Cymbalta] 20 mg capsule,delayed release(DR/EC) 20 mg PO BID Hold Instructions: Prescription Finished ascorbic acid (vitamin C) 1,000 mg tablet extended release 2,000 mg PO DAILY magnesium 200 mg tablet 400 mg PO DAILY escitalopram oxalate [Lexapro] 10 MG tablet 10 mg PO DAILY trazodone 150 MG tablet 150 mg PO QPM omeprazole 20 MG capsule,delayed release(DR/EC) 20 mg PO DAILY cyclobenzaprine 10 MG tablet 10 mg PO TID PRN PRN Patient Comments: Patient states she has not taken this in a few weeks. Patient states she takes this as needed. rizatriptan [Maxalt] 10 MG tablet 10 mg PO DIRECTED Patient Comments: last week acetaminophen 500 mg tablet 1,000 mg PO Q8H PRN (Reason: pain) Qty: 90 3RF celecoxib 200 mg capsule 200 mg PO BID Qty: 60 2RF Rx Instructions: with a meal Discontinued tramadol 50 mg tablet 50 mg PO Q8H PRN (Reason: pain) Qty: 18 0RF Discharge Instructions Additional Instructions: Quadriceps Discharge Instructions Activity: You may weight bear as tolerated. You should wear the knee immobilizer for any mobilization. Do not attempt at bending the knee more than a few degrees until instructed to do so by Dr. Ramires. You may remove the immobilizer or open the top of the immobilizer while resting. You may apply the CryoCuff on the top of the knee. Dressing: Remove the Alok wrap by 2 days after your surgery and put on the VIDYA stocking given to you from the hospital. Keep the surgical dressing (underneath the ALOK wrap) in place for at least one week. After the first week it may be removed and replaced with light gauze and tape or nothing. The wound and dressing may get wet after 3 days but avoid soaking the dressing or otherwise it will need to be changed. Many people prefer covering the dressing with cling wrap (saran wrap) to minimize it from getting soaked. If it gets wet, just pat dry. If it starts to peel off then it will need to be changed. Medications: - You should take Tylenol and anti-inflammatory Celebrex as your primary pain control medications. - You have been prescribed a stronger pain medication Oxycodone for breakthrough pain, take as needed as prescribed. - You will be taking Aspirin 81 mg twice a day for DVT prevention - If you have constipation you should take Colace or Miralax (both [id number]). It takes most people 3-4 days to have a bowel movement. Follow-up: 2 weeks If you have any acute concerns or questions, please do not hesitate to contact the office at [phone]. You may contact Dr. Ramires with any questions after hours through the hospital at [phone] or on his cell phone at [phone]. Referrals: Elder Ramires MD [ [facility] STAFF PHYSICIAN] - Equipment/Supplies: Walker Activity:: Elevate Remove Dressings/Wound Care:: 48 hours Shower/Bathe:: 48 hours Diet:: As Tolerated
[2024-02-25] MEDS: Celecoxib 200 MG CAP 400 MG PO (09:03)
[2024-02-25] MEDS: Gabapentin 300 MG CAP PO (09:03)
[2024-02-25] MEDS: Acetaminophen 500 MG TAB 1000 MG PO (09:03)
[2024-02-25] MEDS: Lactated Ringers 1,000 ML 80 ML IV (09:11)
[2024-02-25] MEDS: ceFAZolin 2 GM/50 ML BAG IVPB (09:52)
[2024-02-25] MEDS: TRANEXAMIC ACID/SOD. CHL. 1,000 MG/100 ML BAG 600 MG IVPB (09:55)
--- NOTE | 2024-02-25 10:02 | ANES.PREOP_ITS ---
General Info Date of Service Date Performed: 02/25/24 Height: 5 ft 3 in Weight: 76.1 kg Body Mass Index (BMI): 29.7 Surgical Procedure: Operation Date: 02/25/24 11:40 Proposed Procedure Side Surgeon p Quad Repair RIGHT KNEE Right Elder Ramires MD Meds Allergies and Home Medications Allergies Allergy/AdvReac Type Severity Reaction Status Date / Time gabapentin AdvReac Mild confused Verified 02/25/24 09:08 iv dye Allergy Severe Hives Uncoded 02/25/24 09:08 Home Medication Medication Instructions Recorded omeprazole 20 mg capsule,delayed 20 mg PO DAILY 12/30/13 release trazodone 150 mg tablet 150 mg PO QPM 12/30/13 escitalopram oxalate 10 mg tablet 10 mg PO DAILY 03/11/17 (Lexapro) cyclobenzaprine 10 mg tablet 10 mg PO TID PRN PRN 06/18/17 rizatriptan 10 mg tablet (Maxalt) 10 mg PO DIRECTED 06/18/17 duloxetine 20 mg capsule,delayed 20 mg PO BID 10/01/19 release (Cymbalta) ascorbic acid (vitamin C) 1,000 mg 2,000 mg PO DAILY 10/14/23 tablet,extended release magnesium 200 mg tablet 400 mg PO DAILY 10/14/23 acetaminophen 500 mg tablet 1,000 mg (2 x 500 mg) PO Q8H PRN 01/08/24 pain #90 tabs celecoxib 200 mg capsule 200 mg PO BID #60 caps 01/08/24 gabapentin 300 mg capsule 300 mg PO QHS #30 caps 02/20/24 aspirin 81 mg tablet,delayed 81 mg PO BID 30 days #60 tabs 02/25/24 release oxycodone 5 mg tablet 5 mg PO Q4H PRN #18 tabs 02/25/24 Current Visit Medications: Current Medications Generic Name Dose Route Start Last Admin Trade Name Freq PRN Reason Stop Dose Admin Acetaminophen 1,000 mg 02/25/24 06:00 02/25/24 09:03 Acetaminophen 500 Mg Tab PO 02/25/24 23:59 1,000 mg PREOP CICI Administration Acetaminophen 1,000 mg 02/25/24 14:00 Acetaminophen 500 Mg Tab PO 03/26/24 13:59 TID CICI Celecoxib 400 mg 02/25/24 06:00 05/28/24 09:03 Celecoxib 200 Mg Cap PO 02/25/24 23:59 400 mg PREOP CICI Administration Celecoxib 200 mg 02/25/24 20:00 Celecoxib 200 Mg Cap PO 03/26/24 19:59 BID CICI Gabapentin 300 mg 02/25/24 06:00 02/25/24 09:03 Gabapentin 300 Mg Cap PO 02/25/24 23:59 300 mg PREOP CICI Administration Ringer's Solution 1,000 mls @ 80 mls/hr 02/25/24 06:00 02/25/24 09:11 IV 02/25/24 23:59 80 mls/hr INFUSION CICI Administration Cefazolin Sodium/Dextrose 2 gm in 50 mls @ 100 mls/hr 02/25/24 06:00 Ancef Duplex IVPB 02/25/24 23:59 PREOP CICI Tranexamic Acid/Sodium Chloride 1,000 mg in 100 mls @ 600 mls/hr 02/25/24 06:00 IVPB 02/25/24 23:59 PREOP CICI Cefazolin Sodium/Dextrose 1 gm in 50 mls @ 100 mls/hr 02/25/24 08:00 Ancef Duplex IVPB 02/26/24 00:29 Q8H CICI IV Miscellaneous Supplies 1 each 02/25/24 06:00 Iv Access IV 02/25/24 23:59 DIRECTED CICI Oxycodone HCl 0 mg 02/25/24 07:34 Oxycodone 5 Mg Tab PO 03/26/24 07:33 Q3H PRN PRN Pain Sodium Chloride 0 ml 02/25/24 06:00 Normal Saline Flush 10 Ml Syr IV 02/25/24 23:59 PRN PRN Sodium Chloride 0 ml 02/25/24 06:00 Normal Saline 10 Ml Vial IJ 02/25/24 23:59 DIRECTED PRN Sterile Water 0 ml 02/25/24 06:00 Water,Injection,Sterile 10 Ml Vial IJ 02/25/24 23:59 DIRECTED PRN PFSH Active Problems Active Problems: Problem Status Onset Code Rupture of right quadriceps tendon S76.111A History of total bilateral knee replacement 01/07/24 Z96.653 Actinic keratosis L57.0 Carotid arterial disease I77.9 Screening for malignant neoplasm of cervix Z12.4 Medical History Medical History Rotator cuff tear Nephrolithiasis Diverticulosis of colon History of peptic ulcer HPV in female Palpitations Per pt. states she had a negative work up, states was anxiety Onychomycosis of toenail Lower back pain Migraine Lumbar radiculitis Rupture of right biceps tendon Lumbar radiculopathy, right Thoracic back pain Shingles NSAID long-term use GERD (gastroesophageal reflux disease) Situational depression Acute diarrhea IBS (irritable bowel syndrome) UTI (urinary tract infection) Encounter for medication monitoring Abdominal pain Frequent loose stools Flushing Colitis Eustachian tube dysfunction Enteritis History of mammogram Muscle spasm Osteopenia Lesion of skin of nose Dry eye Skin lesions Arthritis Anxiety disorder Chronic pain Insomnia Surgical History Surgical History Hx of arthroscopic knee surgery History of bunionectomy History of lumbar fusion section x Open Carpal Tunnel release R Colonoscopy - MAC (11/25/17) Appendectomy Tobacco Smoking/Tobacco Use Status: Former Tobacco Use Alcohol Alcohol Intake: current Alcohol intake frequency: a few times a month Alcohol type: wine Substance Use Substance use: Never Substance use type: does not use Vital Signs and Lab Results Vital Signs Most Recent Vital Signs in EMR: Most Recent Vital Signs Temp Pulse Resp BP Pulse Ox 36.8 C 103 H 17 119/79 93 02/25/24 09:22 02/25/24 09:22 02/25/24 09:22 02/25/24 09:22 02/25/24 09:22 Lab Results Blood Type / Crossmatch: No Data to Display Complete Blood Count: No Data to Display Complete Metabolic Panel: No Data to Display Liver Function Panel: No Data to Display Coagulation Panel: No Data to Display Cardiac Panel: No Data to Display Arterial Blood Gas: No Data to Display Venous Blood Gas: No Data to Display Pancreas Panel: No Data to Display Thyroid Panel: No Data to Display Infectious Disease: No Data to Display Blood Cultures: No Data to Display Toxicology Panel: No Data to Display Imaging and Studies Imaging and Studies Study information below may be from another EMR and interpreted by another provider. Please see original notes in EMR for more complete details. EKG Summary: EKG PATIENT NAME: Molly Cronin UNIT #: [id number] ORDERING PROVIDER: Kyleigh Delgado M.D. PRIMARY CARE PROVIDER: GEORGIA JOYCE MD DATE/TIME OF SERVICE: 07/24/232055 : 1955 PERFORMING LOCATION: ER APPROVED REPORT Exam: Resting ECG Reason for Exam: chest pain Patient Location: E HR:88 bpm ECG Measurements Heart Rate 88 AXIS MD 162 P 28 QRSd 96 QRS 2 QT 345 T45 QTc 418 Conclusion Sinus rhythm...V-rate 60- [address]. [address] segment or T wave abnormalities to suggest occlusive PR <Electronically signed by Kyleigh Delgado M.D. in OV> E-Sign Date: 07/25/23 E-Sign Time: 20 ADDENDUM APPROVED REPORT Exam: Resting ECG Reason for Exam: chest pain Patient Location: E HR:88 bpm ECG Measurements Heart Rate 88 AXIS MD 162 P 28 QRSd 96 QRS 2 QT 345 T45 QTc 418 Conclusion Stress Test Summary: Patient Name: MOLLY CRONIN Unit #: [id number] Loc: DI Ordering Provider: COLE PETIT M.D. Status: REG CLI Primary Care Provider: GEORGIA JOYCE M.D. Date of Exam: 02/07/15 Sex: F : 1955 Age: 59 Exam(s) [id number] NM:MPI Resting & Stress GRP *[facility]* *[facility]* [address] [place] [address] Myocardial Perfusion Imaging - SPECT Cassius protocol Date of study: 02/07/2015 *PATIENT PRESENTATION* Height: 160cm (63in ) Blood Pressure: Weight: 69.1kg (152lb ) BSA: 1.77m^2 Ordering physician: Omar Wright Impressions: Normal perfusion by Tc99m Sestamibi Imaging. Summary: 1. Myocardial perfusion imaging: No myocardial perfusion defects noted. 2. The calculated left ventricular ejection fraction after stress: 66%. History: PT STATES SHE HAS BEEN HAVING CHEST PRESSURE SOMETIMES ASSOCIATED W/ SOB. SHE STATES SOMETIMES HER HEART PAUSES. SHE DENIES ANY RADIATION. SHE LOCALIZES THE PRESSURE SUBSTERNALLY. PT STATES IT LASTS FOR A COUPLE MINUTES WHEN IT OCCURS. THE PRESSURE WILL WAKE HER UP AND IS NOT RELATED TO EXERTION. Risk factors: PT STATES SHE IS ACTIVE, BUT DOES NOT HAVE A SET TIME/DISTANCE SHE DOES PER DAY. REMOTE TOBACCO USE ALLERGIES: NKDA MEDICATIONS: BUPROPION 150MG DAILY, DICLOFENAC 50MG DAILY, GLUCOSAMINE, OMEPRAZOLE 20MG BID, PANTOPRAZOLE 40MG DAILY, TRAZODONE 150MG BID, UBIDECARENONE 30MG DAILY. Imaging Technique: Protocol: Cassius protocol. Acquisition: Gated SPECT; 1 day - rest/stress. The patient was imaged in the supine position. Attenuation correction used. Isotope administration: - Rest. Tc[99m]-sestamibi. Dose: 10.6mCi. Injection time: 09:05 AM. Injection to stress time: 00:45. - Stress. Tc[99m]-sestamibi. Dose: 32.4mCi. Injection time: 11:25 AM. 1-2 min before end of exercise Baseline ECG: NSR @81BPM Stress protocol: + +---+ + Stage HR BP (mmHg) + +---+ + Baseline supine 81 134/90 (105) + +---+ + Baseline standing 98 124/94 (104) + +---+ + Stage I; 1.7mph, 10degrees; 3 min 130 180/78 (112) + +---+ + Stage II; 2.5mph, 12degrees; 3 min 155 210/60 (110) + +---+ + Recovery; 1 min 110 144/66 (92) + +---+ + Recovery; 3 min 102 134/82 (99) + +---+ + Recovery; 6 min 101 124/82 (96) + +---+ + * Stress results: Maximal heart rate during stress was 157bpm (99% of maximal predicted heart rate). The maximal predicted heart rate was 159bpm. The rate-pressure product for the peak heart rate and blood pressure was 46686rf Hg/min. Stress ECG: EXERCISE STOPPED AT 6 MINUTES 31 SECONDS DUE TO PT REQUEST BECAUSE OF INCREASING BILATERAL KNEE PAIN. APPROXIMATELY 7 METS, CASSIUS PROTOCOL APPROPRIATE BP RESPONSE AVERAGE FUNCTIONAL CAPACITY NO ECTOPY NO ANGINA. Abdullahi treadmill score: 7. This score predicts a low risk of cardiac events. Myocardial perfusion: Imaging information: gated. No myocardial perfusion defects noted. Ventricular Function (Wall Motion): The calculated left ventricular ejection fraction after stress: 66%. Study data: [facility] INFO: [id number] This study was interpreted by [facility]. Study status: Routine. Consent: The risks, benefits, and alternatives to the procedure were explained to the patient and informed consent was obtained. Procedure: Initial setup. A baseline ECG was recorded. Surface ECG leads and manual cuff blood pressure measurements were monitored. Heart sounds: Normal. Lung sounds: Normal. Treadmill exercise testing was performed using the Cassius protocol. Study completion: All catheters inserted during the procedure were removed. The patient tolerated the procedure well and was discharged from the lab. Discharge: The patient left the laboratory in stable condition. Birthdate: Patient birthdate: 1955. Sex: Gender: female. Study date: Study date: 07-Feb-2015. Electronically signed by Cole Petit MD 02/07/2015 18:23 Dictated by: BELA COMBS M.D.02/07/15 1000 <Electronically signed by BELA COMBS M.D.>02/08/15 2526 Disclaimer: The radiologist is signing only the Nuclear Medicine MPI Imaging exam portion of the report. Transcribed by: Harshil Tee02/08/15 0493 CC: This is privileged, confidential information intended only for the provider named. Any use or distribution by any person other than this provider is strictly prohibited. If you receive this report in error, please notify us immediately at [phone] and return the original report to us at the address above. Thank-you. Echocardiogram Summary: Echocardiogram Report PATIENT NAME: MOLLY CRONIN UNIT #: [id number] ADMITTING PROVIDER: SOPHIA LEWIS MD PRIMARY CARE PROVIDER: GEORGIA JOYCE M.D. DATE OF SERVICE: 12/09/14 : 1955 DATE: DECEMBER 09, 2014 ____ IN PATIENT _X__ OUT-PATIENT ORDERING PHYSICIAN: Dr. Georgia Joyce and Dr. Cole Petit HEIGHT: 5 FT 3 IN WEIGHT: 150 LBS BSA: 1.7 m2 Blood Pressure 108/68 STUDY INDICATIONS: Chest heaviness and shortness of breath. FINDINGS: LEFT VENTRICLE/LVEF: Left ventricle is normal in size and systolic function. There is no left ventricular hypertrophy. The estimated ejection fraction is 65%. RIGHT VENTRICLE: Normal size and normal systolic function. AORTIC VALVE: Structurally normal, no stenosis or regurgitation. MITRAL VALVE: Normal. TRICUSPID VALVE: Normal. RSV/PA/RIGHT ATRIAL PRESSURE: Pulmonary artery pressure is normal at 20. PULMONIC VALVE: Normal. ATRIA: Normal. DIASTOLIC INDICES: Normal. GREAT VESSELS: Normal. PERICARDIUM: No effusion. SUMMARY: This is a normal study. There is normal left ventricular and right ventricular size and systolic function. The ejection fraction is 65%. MEASUREMENTS: LVESD 27 mm LVEDD 40 mm IVS 7 mm PW 7 mm Ascending Aorta mm AO. Root 30 mm AV mm AO Velocity m/sec LA 13 cm sq. RA 9 cm sq. Right atrial pressure mmHg AV-PK/M mmHg LVOT size mm LVOT gradient mmHg Deceleration time msec Isovolumic relaxation time msec E/A ratio IVC collapses ___X___ Yes No Dictated by: SOPHIA LEWIS MD Dictated:: 12/10/14 1619 <Electronically signed by SOPHIA LEWIS M.D.> 01/03/15 1010 Transcribed Date: 12/14/14 Transcribed Time: 857 By: This is privileged, confidential information, intended only for the provider named. Any use or distribution by any person other than this provider is strictly prohibited. If you receive this report in error, please notify us immediately at [phone] and return the original report to us at the address above. Thank you. Carotid Artery Summary:: Patient Name: MOLLY CRONIN Unit #: [id number] Loc: DI Ordering Provider: Georgia Joyce M.D. Status: [facility] Primary Care Provider: Georgia Joyce M.D. Date of Exam: 03/31/19 Sex: F Admission Date: 03/31/19 : 1955 Age: 63 Exam(s) a US:US carotid SYMPTOM/DIAGNOSIS; CAD i 77.9 CAROTID ULTRASOUND: No significant plaque is visualized. The velocity measurements obtained are within the normal range. The vertebral arteries show antegrade flow. IMPRESSION: negative carotid ultrasound. No significant visible plaque or evidence of internal carotid artery stenosis. Ordered By: Georgia Joyce M.D. CC: Dictated By: Sarahi Bravo M.D. 03/31/19 1135 <Electronically signed by Sarahi Bravo M.D.> 03/31/19 1330 Transcribed By: Kami Mustafa 03/31/19 6628 This is privileged, confidential information intended only for the provider named. Any use or distribution by any person other than this provider is strictly prohibited. If you receive this report in error, please notify us immediately at [phone] and return the original report to us at the address above. Thank-you. Anesthesia Assessment and Plan Anesthesia History Personal History: No History of Anesthesia Complications Family History: No Family History of Anesthesia Complications Exercise Tolerance Exercise Tolerance: Metabolic Equivalents>4 Pertinent Negatives Pertinent Negatives: No Symptoms of GERD and No Major Pulmonary Symptoms or Complaints Cardiac & Pulmonary Exam Cardiac Exam: Normal S1/S2 Heart Sounds Pulmonary Exam: Clear Bilateral Breath Sounds Implantable Cardiac Device Does patient have a Pacemaker or an ICD?: No Airway Exam Known Difficult Airway: No Mallampati Class: 2 Mouth Opening: Normal (> 3cm) Thyromental Distance: Greater than 3 cm Neck Range of Motion: Full ROM Neck Circumference: Normal Teeth Condition: Normal Dentition and Generalized Poor Dentition ASA Classification ASA Score: ASA 2 Emergency Case?: No NPO Status NPO Status: NPO Clears >2 hours, Solids >8 hours Anesthesia Plan Resuscitation Status: Full Code Anesthesia Technique: General Anesthesia Airway Planned: Endotracheal Tube Pain Management: Surgeon and patient request nerve block Monitors Used: Standard Monitors Preoperative Comments:: Past preop: Significant symptomatic lumbar disease despite neurosurgical intervention: discussed at length with the patient and decision to proceed with bilateral adductor canal blocks and a GETA. No changes in health since last visit beyond chief complaint. Patient plan is GETA and right sided adductor canal. No questions or concerns beyond reported some sore throat last time. I will downsize her ETT this visit.
--- NOTE | 2024-02-25 10:04 | W.ANESNERVE ---
Nerve Block Single Injection Procedure Date and Time Date Performed: 02/25/24 Procedure Start: 09:29 Location Where Procedure Performed Procedure Location: Day Surgery Unit Reason Performed: Postoperative Analgesia Requesting Provider: Elder Ramires Timeout Performed Timeout Performed: Yes Monitoring Used ECG, Blood Pressure and SpO2 Sterility Sterility: Hand Hygiene, Surgical Cap, Surgical Mask, Sterile Gloves and Chlorhexidine Sedation Given During Procedure Sedation Given (Indicate Dose Given): Versed IV Dose:: 2 mg Patient Mental Status Patient Mental Status: Sedate with meaningful communication Nerve Block 1st Nerve Block: Laterality: Right Block Type: Adductor Canal Ultrasound Image Saved?: Yes Needle / Catheter Used: 100mm SonoPlex II Local Anesthetic Bolus (Indicate Dose Given): Lidocaine used for local infiltration of skin, Injected in 3-5ml increments after negative blood aspiration and Bupivacaine 0.25% Dose:: 15 ml Additives (Indicate Dose Given): None Ultrasound: Sterile probe cover and gel used Nerve Stimulator: Not Used Paresthesia: None Post Procedure Pain score (0-10): 0 Procedure Tolerated: No Complications and Patient tolerated well Procedure Outcome: Successful Performed By: Juan Francisco Eduardo
[2024-02-25] MEDS: ACETAMINOPHEN 1,000 MG/100 ML BTL 400 MG IVPB (11:32)
--- NOTE | 2024-02-25 11:40 | W.PM.OP ---
Date of service: 02/25/24 Time of Service: 10:00 Operative Note Operative Note DATE OF PROCEDURE: 02/25/24 PRE-OP DIAGNOSIS: Rupture of right knee arthrotomy, s/pTKA PROCEDURE: Irrigation and debridement of right knee with secondary closure of arthrotomy and quadriceps split rupture SURGEON: Elder Ramires LEARNING [employer]PPORT SERVICES DIRECTOR: Joanne Srivastava ANESTHESIA TYPE: General LMA/ETT Refer to Anesthesia Record ESTIMATED BLOOD LOSS: 50 TOURNIQUET TIME: 0 COMPLICATIONS: None Patient was transported to: PACU Patient's condition: stable Indications: Molly is a 68-year-old female who is status post bilateral knee replacements. She is been doing well but noticed a tearing sensation in the right knee approximately 2 weeks ago. On her routine evaluation at the 6-week postoperative appointment there was noted to be a defect of the superior medial patella with an obvious extensor lag. The signified rupture of the arthrotomy and quadriceps split and therefore I recommended proceeding back to the operating room for repair. I reviewed the other treatment options which would be continued nonoperative care, however, unlikely to make drastic improvements with active extension given that she had much better extension to begin with. I reviewed the risk of the procedure to include bleeding, infection, pain, stiffness, weakness, need for repeat procedures, read tear. Despite these risk, she elected to proceed. Findings: There was an obvious rupture of the quadriceps split from the superior margin all the way to the mid portion of the patella. A false tendon was formed over the defect which was debrided down into the healthy [place] tissue. The knee was thoroughly irrigated and debrided from the split and then the quadriceps arthrotomy was repaired at multiple locations utilizing nonabsorbable suture. Procedure Description: Molly was greeted in the preoperative holding area where the correct side was identified and marked. The consent was reviewed with the patient and signed. The history and physical was updated. All questions were answered. Preoperative mediacations were administered: Acetaminophen 1000mg, Celebrex 400mg, and Gabapentin 300mg. An adductor canal block was then administered by the anesthesia team in the PACU. She was taken back to the operating room. A general anesthestic was administered. The patient was placed into the supine position on the operating room table. Posts were placed for positioning during the procedure. All bony prominences were well padded. Prophylactic antibiotics in the form of Cefazolin were administered. The left leg was then prepped with Chloraprep and draped in a standard fashion with impervious stockinette. A second prep with Chloraprep was performed prior to application of Iodine impregnated skin protection. A timeout to confirm correct identity, side and site, procedure, allergies, anesthesia, and medical concerns was performed. With the knee in some flexion, a midline incision was made overlying the knee utilizing the previous incision. Full thickness skin flaps were raised once the extensor mechanism was encountered. These were raised medially and laterally. There is an obvious defect of the quadriceps repair in the arthrotomy with a morales of joint fluid. Any bleeding was controlled with electrocautery. Medial and lateral skin flaps were raised to fully evaluate the extensor mechanism. The defect was quite obvious. It ended about the midportion of patella with maybe some slight diastases at that level but by the inferior portion of the patella there was no defect. The proximal extent went through the quadriceps split but did not seem to extend into the vastus medialis or lateralis. Using a rongeur, I debrided down any of the early scar formation to show tendinous material. Once the tendon was encountered it was able to be easily mobilized back over without significant tension and at 90 degrees of flexion. The knee was thoroughly irrigated with Surgiphor Betadine solution. Once again, debridement was performed of any synovitis around the arthrotomy site and quadriceps repair site. I also debrided any loose scar tissue seen within the knee itself and make sure there is no adhesions between the underlying bone and overlying muscle. The periosteal and capsular tissues were then systematically injected with a periarticular cocktail consisting of 50 cc of ropivacaine, epinephrine, clonidine, ketorolac. The knee was held in 90 degrees of flexion where the repair was performed. I was able to easily reapproximate the tissues utilizing #2 FiberWire. This was done at the superomedial border of the patella. This was completed up the extent of the quadriceps tendon to the superiormost portion of the split. There is excellent approximation of tissues without any gapping. The retinacular tissue surrounding the medial aspect patella was slightly more retracted and thinned. I placed a suture deep and this tissue to the edge of the patella to perform a pants over vest repair of this medial soft tissue. I then also reapproximated the leading edge of this medial vastus medialis origin to the medial retinacular tissues adjacent to the patella. This was all done with a mixture of FiberWire and suture tape. Remainder false tendon was then closed down with suture tape. The tissue quality was excellent and there was great reapproximation of these tissues to each other and stable up to at least 100 degrees of flexion. There is no notable gapping of the arthrotomy site. Once again, the wound was thoroughly irrigated. Deep tissues were then reapproximated with 0 Vicryl and 2-0 Monocryl. The skin was closed with a running 3-0 Monocryl in a subcuticular fashion. This was reinforced with Exofin closure system. A Mepilex silver dressing was applied along with a [id number] ROSANNA wrap. A CryoCuff was applied. Mickey was transferred to the hospital stretcher without difficulty an suffering no apparent complication. Molly has a gaurded prognosis. Aspirin 81mg BID will be used for DVT prophylaxis.
[2024-02-25] MEDS: HYDROmorphone 2 MG/ML SYR IVP ×2 (11:55→12:10)
--- NOTE | 2024-02-25 12:50 | W.ANESPOSTOP ---
Postoperative Evaluation Date, Time and Location Date Performed: 02/25/24 Time Performed: 12:50 Patient Location: Day Surgery Unit Vital Signs Most Recent Imported Vital Signs: Most Recent Vital Signs Temp Pulse Resp BP Pulse Ox 36 C L 94 H 16 138/86 96 02/25/24 12:25 02/25/24 12:25 02/25/24 12:25 02/25/24 12:25 02/25/24 12:25 Pain Score Most Recent Pain Score: Most Recent Pain Score Pain Level 4 02/25/24 12:25 Assessment Mental Status: Awake (Alert & Oriented to Patient Baseline) Airway and Respiratory Function: Patent airway with normal (patient baseline) respiratory exam Cardiovascular Function: Hemodynamically Stable Hydration Status: Adequately Hydrated Nausea & Vomiting: No Nausea or Vomiting Pain: Pain is tolerable per patient Peripheral Nerve Block: Regional nerve block not resolved at time of post operative discharge Postoperative Comments:: Patient reports throat feeling better (downsized her ETT this visit) thank last visit
== END 2024-02-25 13:40 | disposition home or self-care (01) ==
LOC: SUR 08:20
PROVIDERS: PCP Family Medicine; Visit Provider Student in an Organized Health Care Education/Training Program
PROC: (CPT 27385; principal; 2024-02-25 11:30)
DX: S76.111A Strain of right quadriceps muscle, fascia and tendon, initial encounter (principal); X58.XXXA Exposure to other specified factors, initial encounter; Z96.653 Presence of artificial knee joint, bilateral
CPT/HCPCS: 27385; 76942; J0131; J0665; J0690; J1100; J1170; J1805; J2250; J2371; J2405; J2704

== ENCOUNTER → 2024-03-09 14:46 | Outpatient (BNVA) | payer MEDICARE, BC, SELFPAY | PROVIDERS: PCP Family Medicine; Referring Provider Family Medicine | DX: S76.111D Strain of right quadriceps muscle, fascia and tendon, subsequent encounter (principal); X58.XXXD Exposure to other specified factors, subsequent encounter; Z96.653 Presence of artificial knee joint, bilateral ==

== ENCOUNTER → 2024-04-06 14:43 | Outpatient (BNVA) | payer MEDICARE, BC, SELFPAY | PROVIDERS: PCP Family Medicine; Referring Provider Family Medicine; Visit Provider Student in an Organized Health Care Education/Training Program | DX: Z47.1 Aftercare following joint replacement surgery (principal); Z96.653 Presence of artificial knee joint, bilateral ==

== ENCOUNTER → 2024-05-18 14:22 | Outpatient (BNVA) | payer MEDICARE, BC, SELFPAY | PROVIDERS: PCP Family Medicine; Visit Provider Student in an Organized Health Care Education/Training Program | DX: Z47.1 Aftercare following joint replacement surgery (principal); Z96.653 Presence of artificial knee joint, bilateral ==

== ENCOUNTER → 2024-07-13 13:44 | Outpatient (BNVA) | payer MEDICARE, BC, SELFPAY | PROVIDERS: PCP Family Medicine; Referring Provider Family Medicine; Visit Provider Student in an Organized Health Care Education/Training Program | DX: Z96.653 Presence of artificial knee joint, bilateral (principal); M70.51 Other bursitis of knee, right knee | CPT/HCPCS: 20610; J1010 ==

== ENCOUNTER 2024-08-07 15:27 | Outpatient (CLI) | payer MEDICARE, BC, SELFPAY ==
--- NOTE | 2024-08-07 14:06 | DI.RAD_ITS ---
Exam(s) XR LUMBAR SPINE COMPLETE EXAM: XR LUMBAR SPINE COMPLETE CLINICAL HISTORY: LBP, M54.50. TECHNIQUE: 2D digital imaging was performed. Five views. COMPARISON: MR MR LUMBAR SPINE WO from 12/19/2023 FINDINGS: BONES: No fracture or destructive lesion. Vertebral body heights are maintained. Posterior fusion hardware noted at L3 through L5. Laminectomy defects at these levels. DISKS: Severe narrowing of the L2-3 disc space with prominent endplate osteophytes. Disc space shirley rowing endplate osteophytes also noted in lower thoracic spine . Mild disc space narrowing at L5-S1. ALIGNMENT: And slight anterolisthesis of L3 with respect to L2 secondary to degenerative changes. Mi nimal degenerative scoliosis. SOFT TISSUE: Normal. IMPRESSION: Postsurgical changes at L3 through L5. Severe degenerative disc changes at L2-3. DATA REPOSITORY: RADIATION DOSE DELIVERED:
== END 2024-08-07 15:47 ==
LOC: DI 15:29
PROVIDERS: PCP Family Medicine; Visit Provider Family Medicine
DX: M51.360 Other intervertebral disc degeneration, lumbar region with discogenic back pain only (principal); Z98.890 Other specified postprocedural states
CPT/HCPCS: 72110

== ENCOUNTER 2024-09-09 01:13 | Outpatient (CLI) | payer MEDICARE, BC, SELFPAY ==
--- NOTE | 2024-09-09 | DI.MRI_ITS ---
Exam(s) MR LUMBAR SPINE WO EXAM: MR LUMBAR SPINE WO CLINICAL HISTORY: LOW BACK PAIN M54.50. TECHNIQUE: Multiplanar multisequence MRI of the Lumbar spine was performed. COMPARISON: MR MR LUMBAR SPINE WO from 12/19/2023 CR XR LUMBAR SPINE COMPLETE from 08/07/2024 FINDINGS: Again noted is tri level posterior fusion hardware L3-L4-L5 with posterior fusion rods supported by b ilateral intrapedicular screws at L3-L5 levels and a left-sided intrapedicular screw at the L4 level. The relationship of the screws relative to the superior endplates is satisfactory with no screws pr ojecting into the intervertebral disc spaces and there is no evidence of discitis nor osteomyelitis. Conus medullaris is at normal level. There is no evidence of conus mass nor subjacent clumping of in trathecal nerve roots to suggest arachnoiditis. The distal thecal sac appears unremarkable.There is no evidence of Tarlov intrasacral cysts nor other significant findings within the sacral canal Bones:There are no fractures nor ominous osseous lesions in the lumbar vertebral bodies and visualize d sacrum. With respect to the individual levels... T11-T12: Symmetrical annular bulging is unchanged from the prior study. Central canal dimensions are within normal limits and there is no significant foraminal stenosis at this level. T12-L1: This level again exhibits broad annular bulging which is slightly more prominent on the left side. Central canal dimensions are lower normal. The annular bulging does not extend appreciably in to the exiting neural foramina which are patent. This level also appears unchanged from prior MRI sc an of 12/19/2023. Schmorl's node invagination in the superior endplate of L1 is unchanged. No verte bral height loss evident. L1-2: Normal disc height and signal. No disc herniation nor central canal stenosis.No foraminal steno sis mild facet arthropathy. L2-3: This is one level above the fusion and this disc space again exhibits chronic advanced disc spa ce narrowing in posterior bony ridging without a distinct focal disc herniation. Lateral left osteop hytes are noted. There is no focal disc herniation noted but there is mild-moderate central spinal c anal stenosis at this level again evident. There is moderate foraminal stenosis on the left side at this level again noted. Minimal if any significant narrowing of the opposite-right neural foramen. L3-4: There has been removal of posterior osseous elements at this level. There are bilateral intrap edicular screws in satisfactory position at this level. There is some disc space narrowing which is unchanged and there is no evidence of significant disc herniation or central spinal canal stenosis. There is mild foraminal stenosis on both sides at this level again noted, unchanged. L4-5: This level is again noted to be fused across the disc space with no remaining disc material and there is stable anterolisthesis L4 upon L5 with the posterior cortex of L4 being 9 mm anterior to th e posterior cortex of L5, similar to the previous study. There has been removal of posterior osseous elements at this level. There is a single left-sided intrapedicular screw at this level which remai ns in good position. There is no central canal stenosis. There is significant impingement of the ex iting nerve roots bilaterally at this level,, these being impinged between the posterior aspect of L5 vertebral body and the overlying L4 pedicles, similar to the previous study with some flattening of the exiting nerve roots at this level. This is again noted be more prominent on the right side with quite severe foraminal stenosis on the right side and more moderate foraminal stenosis on the left si de at this level again noted. L5-S1: There bilateral intrapedicular screws in satisfactory position within L5 vertebral body and re moval of posterior osseous elements. There is preserved disc height again noted on both sides of thi s disc space. There is no disc herniation or central canal stenosis at this level. There is mild-mo derate bilateral foraminal narrowing again evident at this level. 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 Thi s finding is unchanged from the prior study and of doubtful clinical significance. IMPRESSION: 1. Compared to the prior MRI scan of 12/19/2023 there is again noted posterior fusion hardware from L 3 through L5, inclusive, supported by bilateral intrapedicular screws at L3 and L5 and unilateral lef t intrapedicular screw at L4, with also cruise being in satisfactory position. There is no evidence of discitis nor osteomyelitis nor abnormal epidural collections. 2. There does not appear to be significant change when compared to the MRI scan of 12/19/2023 with fi ndings as per individual level above. 3. There is mild-moderate central spinal canal stenosis one level above the fusion at L2-3 level whic h is unchanged and not associated with a disc herniation. Also some foraminal stenosis at this level as above. 4. There is fusion across the L4-5 disc space with 9 millimeter anterior fixed slippage of L4 upon L 5 again noted. There is no central canal stenosis at this level but there is again noted significant bilateral vertical foraminal stenosis at this level with flattening of the exiting nerve roots bilat erally between the subjacent posterior aspect of L5 vertebral body and overlying L4 pedicles. This b eing again noted be more prominent on the right side (severe) and more moderate on the left side. DATA REPOSITORY:
== END 2024-09-09 01:33 ==
LOC: DI 01:14
PROVIDERS: PCP Family Medicine; Visit Provider Family Medicine
DX: M48.061 Spinal stenosis, lumbar region without neurogenic claudication (principal)
CPT/HCPCS: 72148

== ENCOUNTER 2024-10-13 09:40 | Outpatient (REF) | payer MEDICARE, BC, SELFPAY ==
[2024-10-13 16:32] LABS: ALT 22 U/L (14-59); AST 18 U/L (15-37); Albumin 3.6 g/dL (3.4-5.0); Alkaline Phosphatase 128 U/L (46-116); Anion Gap 6.4 mmol/L (3-11); BUN 19 mg/dL (7-18); Bilirubin, Total 0.47 mg/dL (0.2-1.0); CO2 30.6 mmol/L (21.0-32.0); CREATININE 0.9 mg/dL (0.55-1.02); Calcium 9.1 mg/dL (8.5-10.1); Calculated LDL 121 mg/dL (<100); Chloride 106 mmol/L (98-107); Cholesterol 227 mg/dL (<200); Estimated GFR 68.35 (mL/min/1.73m2); Glucose 107 mg/dL (74-106); HDL Cholesterol 63 mg/dL (40-60); Magnesium 1.9 mg/dL (1.8-2.4); Potassium 4.4 mmol/L (3.5-5.1); Sodium 143 mmol/L (136-145); Total Protein 7.3 g/dL (6.4-8.2); Triglyceride 215 mg/dL (<150)
== END 2024-10-13 09:41 | disposition home or self-care (01) ==
LOC: NCHCN 09:40
PROVIDERS: PCP Family Medicine; Visit Provider Family Medicine
DX: E78.5 Hyperlipidemia, unspecified (principal)
CPT/HCPCS: 80053; 80061; 83735

== ENCOUNTER 2024-11-10 15:27 | Outpatient (CLI) | payer MEDICARE, BC, SELFPAY ==
--- NOTE | 2024-11-10 14:15 | DI.RAD_ITS ---
Exam(s) XR SHOULDER RT COMPLETE 2+V EXAM: XR SHOULDER RT COMPLETE 2+V CLINICAL HISTORY: RIGHT SHOULDER PAIN. TECHNIQUE: 2D digital imaging was performed. Five views. COMPARISON: CR SHOULDER ONE VIEW from 12/20/2006 FINDINGS: BONES: No acute fracture is present. No bony destructive lesion is seen. Degenerative 6 disc changes noted in the humeral head. JOINTS: No dislocation present. No significant spurring at the AC joint. Mild spurring at the under surface of the acromion. Glenohumeral joint space is maintained. Prominent spurring at the margin o f the humeral head. SOFT TISSUE: Normal. IMPRESSION: Moderate degenerative changes DATA REPOSITORY: RADIATION DOSE DELIVERED:
== END 2024-11-10 15:28 | disposition home or self-care (01) ==
LOC: DIORS 15:27
PROVIDERS: PCP Family Medicine; Referring Provider Family Medicine; Visit Provider Student in an Organized Health Care Education/Training Program
DX: M19.011 Primary osteoarthritis, right shoulder; M75.101 Unspecified rotator cuff tear or rupture of right shoulder, not specified as traumatic
CPT/HCPCS: 20610; 99213; 99214; J1010; 73030

== ENCOUNTER 2025-01-11 14:53 | Outpatient (CLI) | payer MEDICARE, BC, SELFPAY ==
--- NOTE | 2025-01-11 14:15 | DI.RAD_ITS ---
Exam(s) XR KNEE LT 2V AP,LAT XR KNEE RT 2V AP,LAT EXAM: XR KNEE RT 2V AP,LAT CLINICAL HISTORY: ANNUAL F/U BILAT TKAs. TECHNIQUE: 2D digital imaging was performed. Two views of both knees. COMPARISON: CR XR KNEE LT 1V from 01/20/2024 CR XR KNEE RT 1V from 01/20/2024 CR XR STANDING ALIGNMENT from 01/20/2024 CR XR KNEE LT 2V AP,LAT from 01/11/2025 FINDINGS: BONES: No acute fracture is present. No bony destructive lesion is seen. JOINTS: The knee prostheses are normally aligned. Stable appearance from prior. No joint effusion i s seen. SOFT TISSUE: Normal. IMPRESSION: Stable appearance of bilateral knee prostheses. DATA REPOSITORY: RADIATION DOSE DELIVERED:
== END 2025-01-11 14:54 | disposition home or self-care (01) ==
LOC: DIORS 14:53
PROVIDERS: PCP Family Medicine; Visit Provider Student in an Organized Health Care Education/Training Program
DX: Z96.653 Presence of artificial knee joint, bilateral (principal); Z47.1 Aftercare following joint replacement surgery; M70.51 Other bursitis of knee, right knee
CPT/HCPCS: 99213; 73560

== ENCOUNTER 2025-02-26 11:38 | Emergency (ER) | payer MEDICARE, BC, SELFPAY ==
[2025-02-26 11:41] VITALS: BP 137/92; PULSE 107; RESP 18; TEMP 36.6; O2SAT 96
--- NOTE | 2025-02-26 11:45 | DI.RAD_ITS ---
Exam(s) XR HAND RT LIMITED EXAM: XR HAND RT LIMITED CLINICAL HISTORY: R thumb and R wrist pain. TECHNIQUE: 2D digital imaging was performed. COMPARISON: CR XR WRIST RT COMPLETE from 02/26/2025 FINDINGS: Two views-AP and lateral. Limited two view study of the right hand reveals abnormal widening of the scapholunate distance in th e wrist consistent with disruption of the scapholunate ligament. There is also negative ulnar varian ce in the wrist. There are no fractures evident in the hand. Some degenerative changes in the distal interphalangeal joints are noted. Most prominent in the 5th and 2nd fingers. Other articulations appear intact. IMPRESSION: No acute osseous findings on this limited two view study of the hand Incidentally noted in the wrist is significant widening of the scapholunate distance consistent with disruption of the scapholunate ligament. DATA REPOSITORY: RADIATION DOSE DELIVERED:
--- NOTE | 2025-02-26 11:46 | ED.GENADUL_ITS ---
Discharge Plan Disposition Patient Disposition: Home Discharge Details Clinical Impression: De Quervain's disease (tenosynovitis), Right wrist pain Primary Care Provider: Georgia Correa V ED Provider: Jesica Gonzalez Home Meds and New Rx's Prescriptions: No Action vitamin E (dl, acetate) 450 mg (1,000 unit) capsule 900 mg PO DAILY diclofenac sodium 3 % gel 1 applic topical BID celecoxib [Celebrex] 200 mg capsule 200 mg PO BID gabapentin 300 mg capsule 300 mg PO QHS PRN multivitamin [One-A-Day Essential] Tablet 1 tab PO DAILY turmeric 400 mg capsule 400 mg PO DAILY magnesium 200 mg tablet 400 mg PO DAILY duloxetine 60 mg capsule,delayed release(DR/EC) 60 mg PO BID liraglutide [Victoza 2-Montrell] 0.6 mg/0.1 mL (18 mg/3 mL) pen injector See Rx Instructions subcut .COMPLEX Rx Instructions: inject 0.6mg subcutaneously once daily x 7 days; then 1.2mg daily, not to exceed 1.8mg/day subcut famotidine 20 mg tablet 20 mg PO DAILY trazodone 150 MG tablet 150 mg PO QPM omeprazole 20 MG capsule,delayed release(DR/EC) 20 mg PO DAILY simvastatin 10 mg tablet 10 mg PO DAILY Patient Comments: TAKE ONE TABLET BY MOUTH EVERY DAY cyclobenzaprine 10 MG tablet 10 mg PO TID PRN PRN Patient Comments: Patient states she has not taken this in a few weeks. Patient states she takes this as needed. acetaminophen 500 mg tablet 1,000 mg PO Q8H PRN (Reason: pain) Qty: 90 3RF Discharge Instructions Instructions: de Quervain tendinopathy Additional Instructions: Call your primary care provider first thing Saturday morning to schedule follow-up appointment for reassessment. Please use ice for 15 to 20 minutes at a time every hour or so. Use the Velcro splint when you are up and about doing things, you may take it off if you are resting or in bed. Tylenol or ibuprofen may be used for discomfort. Elevate wrist above heart level to help with any swelling. If wrist discomfort persists, referral to physical therapy or orthopedics may be indicated. On x-ray there is evidence of disruption of the ligament, however is unclear if this is a new injury. This should be followed up as recommended by your primary care provider. Return to emergency care if you develop any fevers associated with wrist pain/swelling, new numbness/tingling, color change, severe pain, redness overlying your thumb/wrist, streaking up your arm, or if you are very worried and need to be rechecked again immediately Referrals: Georgia Correa MD [Primary Care Provider] - Discharge Data Discharge Date/Time-TO BE ENTERED AT DEPARTURE: 02/26/25 13:33 HPI General Date/Time Provider Initiated Documentation: 02/26/25 11:44 . HPI Narrative: Molly is a 69-year-old female who presents to the emergency department today for evaluation of right wrist pain. Pain started to the radial aspect of her right wrist yesterday. She recalls an incident where she placed her full weight on her right hand, which is also her dominant hand, resulting in immediate discomfort. She recalls an incident where she placed her full weight on her right hand, which is also her dominant hand, resulting in immediate discomfort. No distal numbness/tingling, swelling, or color change. She is an active individual who suspects a stress fracture in her right wrist. She reports she puts a lot of weight on her wrist when getting up due to difficulty transitioning from a seated position to her knees, a problem she attributes to a previous knee surgery performed a year ago. She has arthritis. She reports no new shoulder pain or any unusual elbow discomfort. She does not have any heart problems, lung problems, bleeding disorders, kidney problems, or high blood pressure. Has not taking any medications for this. She is right-hand dominant. Related Data Home Medications ?Medication ?Instructions ?Recorded ?Confirmed omeprazole 20 mg capsule,delayed 20 mg PO DAILY 12/30/13 02/26/25 release trazodone 150 mg tablet 150 mg PO QPM 12/30/13 02/26/25 cyclobenzaprine 10 mg tablet 10 mg PO TID PRN PRN 06/18/17 02/26/25 magnesium 200 mg tablet 400 mg PO DAILY 10/14/23 02/26/25 acetaminophen 500 mg tablet 1,000 mg (2 x 500 mg) PO Q8H PRN 01/08/24 02/26/25 pain #90 tabs vitamin E (dl, acetate) 450 mg 900 mg PO DAILY 07/13/24 02/26/25 (1,000 unit) capsule celecoxib 200 mg capsule (Celebrex) 200 mg PO BID 10/12/24 02/26/25 diclofenac sodium 3 % topical gel 1 applic topical BID 10/12/24 02/26/25 gabapentin 300 mg capsule 300 mg PO QHS PRN 10/12/24 02/26/25 multivitamin (One-A-Day Essential 1 tab PO DAILY 10/12/24 02/26/25 tablet) turmeric 400 mg capsule 400 mg PO DAILY 10/12/24 02/26/25 duloxetine 60 mg capsule,delayed 60 mg PO BID 10/22/24 02/26/25 release famotidine 20 mg tablet 20 mg PO DAILY 10/22/24 02/26/25 liraglutide 0.6 mg/0.1 mL (18 mg/3 See Rx Instructions subcut .COMPLEX 10/22/24 02/26/25 mL) subcutaneous pen injector (Victoza 2-Montrell) simvastatin 10 mg tablet 10 mg PO DAILY 02/26/25 02/26/25 Previous Rx's ?Medication ?Instructions ?Recorded acetaminophen 500 mg tablet 1,000 mg (2 x 500 mg) PO Q8H PRN 01/08/24 pain #90 tabs Allergies Allergy/AdvReac Type Severity Reaction Status Date / Time Iodinated Contrast Media Allergy Unknown Hives Unverified 02/26/25 11:45 General Stated Complaint: Orthopedic ANNIE: 4 Exam Const General: cooperative, healthy appearing, comfortable, no acute distress and well developed Nutritional Appearance: average body habitus and well nourished Orientation: oriented x3 Resp Effort & Inspection: normal respiratory effort and able to speak in complete sentences Skin General skin exam: no rashes or lesions noted Trauma: no lacerations or abrasions Neuro General: patient alert, patient oriented x3, tone normal, moves all extremities and no focal motor deficits Motor: muscle tone normal throughout and strength 5/5 throughout Sensory Exam: no sensory deficits noted Extrem Right upper extremity: full ROM, normal capillary refill, no joint enlargement, elbow/forearm Details: normal to inspection and wrist Details: tenderness Location: of the distal radius and of the anatomic snuffbox and other (+ Mathew test); no unusual warmth, no abrasions and no lacerations; no cyanosis and no edema Course Vital Signs Vital signs: Vital Signs Temperature 36.6 C 05/30/25 11:41 Pulse 107 H 02/26/25 11:41 Respiratory Rate 18 02/26/25 11:41 Blood Pressure 137/92 H 02/26/25 11:41 Pulse Oximetry 96 02/26/25 11:41 Temperature 36.6 C 02/26/25 11:41 Pulse 107 H 02/26/25 11:41 Respiratory Rate 18 02/26/25 11:41 Blood Pressure 137/92 H 02/26/25 11:41 Pulse Oximetry 96 02/26/25 11:41 Medical Decision Making Molly is a 69-year-old female who presented to the emergency department today for evaluation of right wrist pain. DDx includes but is not limited to: De Quervain's tenosynovitis, avulsion fracture, stress fracture. As there is diffuse tenderness over the radial aspect of the thumb/wrist, cannot definitively exclude scaphoid fracture Vital signs significant for tachycardia, heart rate in the low 100s. This is consistent with previous recorded heart rates over the last year in which patient's heart rate was consistently in the upper 90s to low 110s I independently interpreted the following tests: Right wrist x-ray, no obvious fracture noted. Radiologist did note widening of the scapholunate joint space of undetermined age Workup today reassuring. History and presentation most consistent with de Quervain's tenosynovitis, characterized by inflammation of the tendon, typically observed in active individuals and predominantly affecting the dominant hand. While in the emergency department Molly was given splint with thumb support to be used for a duration of several weeks to facilitate rest and recovery. She is advised to apply ice to the affected area and may use [id number] analgesics such as Tylenol or ibuprofen for pain management. Topical application of diclofenac gel is also recommended. Recommend close follow-up with PCP for further evaluation/management and PT referral as needed Patient consented to the use of [facility] Imaging Data Radiologic Study: Radiologist's impression: Exam(s) XR WRIST RT COMPLETE EXAM: XR WRIST RT COMPLETE CLINICAL HISTORY: R wrist pain. TECHNIQUE: 2D digital imaging was performed. COMPARISON: No exams were available for comparison FINDINGS: 3 views No evidence of acute fracture. There is significant widening of the scapholunate joint space. There is also negative ulnar variance. There is also decreased joint space between the distal radius and the lunate. Moderate degenerative changes noted in the 1st carpometacarpal joint. IMPRESSION: Widened scapholunate distance implying disruption of the ligament, age indeterminate. Also significant ulnar variance. Bone density age-appropriate. No osseous lesions Quality:SDOH Health Related Social Needs: No Data to Display PFSH All Active Problems (Updated 02/26/25 @ 13:22 by Jesica Castro) Right wrist pain (Acute) De Quervain's disease (tenosynovitis) (Acute) Right rotator cuff tear arthropathy (Acute) Arthritis of right glenohumeral joint (Acute) Lumbar spondylosis (Acute) Mechanical low back pain (Acute) Postlaminectomy syndrome (Acute) Pes anserinus bursitis of right knee (Acute) Steroid injection: 07/13/2024 Rupture of right quadriceps tendon (Acute) S/P Repair: 02/25/2024 Actinic keratosis (Acute) Carotid arterial disease (Acute) Screening for malignant neoplasm of cervix (Acute) Medical History (Updated 02/26/25 @ 13:22 by Jesica Castro) Intertrigo Adjustment disorder Hypocalcemia Disorder of artery Ankylosis of lumbar spine Noninfectious gastroenteritis Pain in knee joint Hyperlipidemia Duodenitis Rotator cuff tear Nephrolithiasis Diverticulosis of colon History of peptic ulcer HPV in female Palpitations Per pt. states she had a negative work up, states was anxiety Onychomycosis of toenail Lower back pain Migraine Lumbar radiculitis Rupture of right biceps tendon Lumbar radiculopathy, right Thoracic back pain Shingles NSAID long-term use GERD (gastroesophageal reflux disease) Situational depression Acute diarrhea IBS (irritable bowel syndrome) UTI (urinary tract infection) Encounter for medication monitoring Abdominal pain Frequent loose stools Flushing Colitis Eustachian tube dysfunction Enteritis History of mammogram Muscle spasm Osteopenia Lesion of skin of nose Dry eye Skin lesions Arthritis Anxiety disorder Chronic pain Insomnia Surgical History (Updated 01/11/25 @ 14:47 by TIFFANIE Romero) History of total bilateral knee replacement (01/07/24) History of carpal tunnel release History of colonoscopy H/O: section Hx of appendectomy Hx of arthroscopic knee surgery History of bunionectomy History of lumbar fusion Family History Mother Breast cancer TIA (transient ischemic attack) Father Angina at rest Parkinsons Social History Smoking/Tobacco Use Status: Former Tobacco Use Quit Date: 09/30/85 Smoking risk assessment performed?: Yes Alcohol Intake: current Alcohol Intake frequency: a few times a month Alcohol type: wine Drug use: Never Substance use type: does not use Housing: house Do you feel safe at home: Yes Do you feel safe in your relationship?: Yes
[2025-02-26] MEDS: Acetaminophen 325 MG TAB 650 MG PO (12:10)
[2025-02-26 13:32] VITALS: BP 154/89; PULSE 102; RESP 20; O2SAT 98
== END 2025-02-26 13:33 | disposition home or self-care (01) ==
PROVIDERS: Emergency Provider Nurse Practitioner Family; PCP Family Medicine
DX: M25.531 Pain in right wrist (principal); M65.4 Radial styloid tenosynovitis [de Quervain]; E78.5 Hyperlipidemia, unspecified; Z98.1 Arthrodesis status; Z96.653 Presence of artificial knee joint, bilateral; Z87.891 Personal history of nicotine dependence
CPT/HCPCS: 99283; 73110; 73120

== ENCOUNTER 2025-06-15 14:59 | Outpatient (REF) | payer MEDICARE, BC, SELFPAY ==
[2025-06-15 20:01] LABS: HCT 43.5 % (36.0-46.0); HGB 13.7 g/dL (11.2-15.7); MCH 27.8 pg (27.0-33.0); MCHC 31.5 % (32.0-36.0); MCV 88 fL (80-95); MPV 9.6 fL (8.0-11.0); Platelet Count 281 10^3/uL (130-400); RBC 4.92 10^6/uL (3.93-5.22); RDW 14.0 % (11.7-14.6); RDW-SD 45.1 fL; WBC 6.85 10^3/uL (4.4-10.8)
[2025-06-15 21:11] LABS: TSH (W/Ref FT4) 1.45 uIU/mL (0.36-3.74); Vitamin B12 637 pg/mL (193-986)
[2025-06-17 15:25] LABS: Albumin 62.2 % (55.8-66.1); Albumin g/dL 4.6 g/dL (3.6-5.2); Alpha 1 g/dL 0.20 g/dL (0.15-0.40); Alpha 2 g/dL 0.70 g/dL (0.50-1.00); Beta g/dL 0.90 g/dL (0.60-1.20); Gamma g/dL 1.00 g/dL (0.60-1.60); Total Protein 7.4 g/dL (6.3-8.2)
== END 2025-06-15 15:00 | disposition home or self-care (01) ==
LOC: NCHCN 14:59
PROVIDERS: PCP Family Medicine; Visit Provider Family Medicine
DX: R00.0 Tachycardia, unspecified (principal); G62.9 Polyneuropathy, unspecified
CPT/HCPCS: 85027; 82607; 84165; 84443; 86320

== ENCOUNTER 2025-07-08 04:20 | Outpatient (CLI) | payer MEDICARE, BC, SELFPAY ==
--- NOTE | 2025-07-08 | DI.MAMMO_ITS ---
Exam(s) MAMMO SCREENING EXAM: MAMMO SCREENING CLINICAL HISTORY: SCREENING MAMMO Z12.31,FAMILY H/O BREAST CA TECHNIQUE: Bilateral full field digital CC and MLO mammographic images were obtained with 3D tomosynthesis and utilizing computer aided detection (CAD). COMPARISON: Comparison is made with prior examinations. FINDINGS: Masses/Architectural Distortion: There is a new ovoid density in the medial right breast on the craniocaudad view 4.5 cm from the nipple. It may represent overlying fibroglandular tissue, but a spot compression views requested for further evaluation. Microcalcifications: No suspicious pleomorphic-type are seen. Skin Thickening/Nipple Retraction: None. IMPRESSION: 1. New ovoid density in the medial right breast 4.5 cm from the nipple. 2. Spot compression views requested for further evaluation. Ultrasound may be indicated at that time. BI-RADS Category 0 - Incomplete: Need additional imaging evaluation Breast Density - Category B - There are scattered areas of fibroglandular density. Breast density Category C or D implies that the patient has dense breast tissue. Dense breast tissue can make it harder to find cancer on a mammogram. Dense breast tissue is also associated with an increased risk of breast cancer. This information about the result of the mammogram report was provided to the patient to raise their awareness. Use this report when you speak with the patient about their risks for breast cancer, which includes their family history. At that time, you may recommend additional screening tests (Ultrasound or MRI) as these tests may add significant information. A negative radiographic report should not delay biopsy if a dominant or clinically suspicious mass is present. Up to ten percent of cancers are not identified on mammography. A negative report may reinforce clinical impression. Adenosis and dense breasts may obscure an underlying neoplasm. False positive reports average 6 to 10%. Patient will receive a letter notifying them of these results.
--- NOTE | 2025-07-08 | DI.DEXA_ITS ---
Exam(s) XR DEXA BONE DENSITY W/WO TAMI EXAM: XR DEXA BONE DENSITY W/WO TAMI CLINICAL HISTORY: ASYMPTOMATIC MENOPAUSAL STATE Z78.0 SCREENING FOR OSTEOPOROSIS TECHNIQUE: Routine DEXA evaluation of the lumbar spine, hip, or forearm. COMPARISON: CR XR LUMBAR SPINE COMPLETE from 08/07/2024 FINDINGS: Performed on a Hologic unit. Lateral image: No compression fracture evident. There is tri level posterior fusion hardware at L3-L5 and this prevents DEXA testing at the lumbar level. Lumbar Spine total T-score: Not done Hip total T-score:-1.3 which is within osteopenia range Independent reading at the level of the femoral neck yields T-score of -2.0 which is also within osteopenia range Forearm total T-score: -1.5 which is osteopenia range. IMPRESSION: Bone mineral density measures in the osteopenia range. Fracture risk is moderate. Note: Any spine fracture indicates 5x risk for subsequent spine fracture and 2x risk for subsequent hip fracture. World Health Organization criteria for BMD interpretation classify patients: Normal...... T- Score at or above -1.0 Osteopenic... T- Score between -1.0 and -2.5 Osteoporosis... T-Score at or below -2.5
== END 2025-07-08 04:40 ==
LOC: DI 04:20
PROVIDERS: PCP Family Medicine; Visit Provider Family Medicine
DX: Z13.820 Encounter for screening for osteoporosis (principal); Z78.0 Asymptomatic menopausal state; N63.31 Unspecified lump in axillary tail of the right breast; Z12.31 Encounter for screening mammogram for malignant neoplasm of breast; Z80.3 Family history of malignant neoplasm of breast; M81.0 Age-related osteoporosis without current pathological fracture
CPT/HCPCS: 77063; 77067; 77080

== ENCOUNTER 2025-07-19 02:22 | Outpatient (CLI) | payer MEDICARE, BC, SELFPAY ==
--- NOTE | 2025-07-19 10:27 | DI.MAMMO_ITS ---
Exam(s) MG MAMMO SCREEN CALL BACK UNI EXAM: MG MAMMO SCREEN CALL BACK UNI CLINICAL HISTORY: NEW OVOID DENSITY MEDIAL RT BREAST 4.5CM FROM NIPPLE R920.8 ABNL MAMMO. TECHNIQUE: Craniocaudal and mediolateral oblique Full Field Digital Mammography views of the right breast with Computer Aided Diagnosis. COMPARISON: Comparison is made with prior examinations. FINDINGS: Mammography/Tomosynthesis: Masses/Architectural Distortion: The area of concern does not persist on the additional views. There are no suspicious masses or areas of architectural distortion present. Microcalcifictions: No suspicious pleomorphic-type are seen. Skin Thickening/Nipple Retraction: None. IMPRESSION: 1. No evidence of malignancy is noted. 2. Unless there is more urgent need, follow-up screening mammography is recommended, as per [place] [employer] guidelines. 3. The findings were discussed with the patient on the date of the examination. BI-RADS Category 1 - Negative Breast Density - Category B - There are scattered areas of fibroglandular density. Breast density Category C or D implies that the patient has dense breast tissue. Dense breast tissue can make it harder to find cancer on a mammogram. Dense breast tissue is also associated with an increased risk of breast cancer. This information about the result of the mammogram report was provided to the patient to raise their awareness. Use this report when you speak with the patient about their risks for breast cancer, which includes their family history. At that time, you may recommend additional screening tests (Ultrasound or MRI) as these tests may add significant information. A negative radiographic report should not delay biopsy if a dominant or clinically suspicious mass is present. Up to ten percent of cancers are not identified on mammography. A negative report may reinforce clinical impression. Adenosis and dense breasts may obscure an underlying neoplasm. False positive reports average 6 to 10%. Patient will receive a letter notifying them of these results.
== END 2025-07-19 02:42 ==
LOC: DI 02:22
PROVIDERS: PCP Family Medicine; Visit Provider Family Medicine
DX: Z12.31 Encounter for screening mammogram for malignant neoplasm of breast (principal); R92.8 Other abnormal and inconclusive findings on diagnostic imaging of breast
CPT/HCPCS: 77063; 77067

== ENCOUNTER 2025-09-01 15:53 | Outpatient (CLI) | payer MEDICARE, BC, SELFPAY ==
[2025-09-01 16:13] LABS: Abs Immature Grans 0.03 10^3/uL (0.0-0.06); HCT 41.5 % (36.0-46.0); HGB 13.3 g/dL (11.2-15.7); Immature Grans % 0.4 %; MCH 28.6 pg (27.0-33.0); MCHC 32.0 % (32.0-36.0); MCV 89 fL (80-95); MPV 8.8 fL (8.0-11.0); Platelet Count 257 10^3/uL (130-400); RBC 4.65 10^6/uL (3.93-5.22); RDW 13.7 % (11.7-14.6); RDW-SD 44.9 fL; WBC 7.67 10^3/uL (4.4-10.8)
[2025-09-01 16:32] LABS: ALT 32 U/L (10-49); AST 25 U/L (<34); Albumin 4.2 g/dL (3.2-5.0); Alkaline Phosphatase 100 U/L (46-116); Anion Gap 8.3 mmol/L (3-11); BUN 18 mg/dL (9-23); Bilirubin, Total 0.30 mg/dL (0.2-1.2); CO2 26.7 mmol/L (20.0-31.0); Calcium 8.8 mg/dL (8.3-10.6); Chloride 106 mmol/L (98-107); Glucose 101 mg/dL (74-106); Potassium 4.1 mmol/L (3.5-5.1); Sodium 141 mmol/L (136-145); Total Protein 7.1 g/dL (5.7-8.2)
[2025-09-03 10:30] LABS: Kappa Free Light Chain 1.62 mg/dL (0.33-1.94); Lambda Free Light Chain 1.20 mg/dL (0.57-2.63)
[2025-09-03 15:37] LABS: Albumin 59.9 % (55.8-66.1); Albumin g/dL 4.3 g/dL (3.6-5.2); Alpha 1 g/dL 0.20 g/dL (0.15-0.40); Alpha 2 g/dL 0.70 g/dL (0.50-1.00); Beta g/dL 0.90 g/dL (0.60-1.20); Gamma g/dL 1.00 g/dL (0.60-1.60); Total Protein 7.1 g/dL (6.3-8.2)
== END 2025-09-01 15:54 | disposition home or self-care (01) ==
LOC: LBO 15:54
PROVIDERS: PCP Family Medicine; Visit Provider Internal Medicine Hematology & Oncology
DX: D47.2 Monoclonal gammopathy (principal)
CPT/HCPCS: 36415; 80053; 82784; 83883; 84165; 85025; 86320